=== PATIENT | male | born 1965 | race Caucasian/White ===

== ENCOUNTER 2020-11-07 10:11 | Outpatient (REF) | payer OTHER, SELFPAY ==
--- NOTE | ~2020-11-07 | XR_ITS ---
EXAMINATION: XR ELBOW, LEFT CLINICAL INFORMATION: Pain. COMPARISON: None TECHNIQUE: AP, lateral, and oblique views of the left elbow. FINDINGS: The bones and soft tissues are normal. No fracture or joint effusion. Alignment is anatomic. Joint spaces are maintained. XR/XR elbow LT 2V IMPRESSION: Normal left elbow.
[2020-11-07 11:05] LABS: Hematocrit 48.1 % (42-52); Hemoglobin 16.2 g/dl (14.0-18.0); Mean Corpuscular HGB Conc 33.7 g/dl (31.0-36.0); Mean Corpuscular Hemoglobin 29.3 pg (27.0-33.0); Mean Platelet Volume 11.9 fL (9.4-12.4); Platelet Count 242 X10*3/uL (160-400); Red Blood Count 5.53 X10*6/uL (4.60-5.80); Red Cell Distribution Width 12.4 % (11.0-16.0); White Blood Count 10.9 X10*3/uL (4.8-10.8)
[2020-11-07 11:19] LABS: Creatinine Urine 145.08 mg/dL; Microalbum/Creatinine Ratio Ur 24.1 ug/mg cr
[2020-11-07 11:20] LABS: Alanine Aminotransferase 24 U/L (0-40); Albumin Level 4.6 g/dL (3.5-5.0); Alkaline Phosphatase 78 U/L (39-117); Anion Gap 12 (12-20); Aspartate Amino Transferase 24 U/L (5-37); Bilirubin Total 0.7 mg/dL (0.0-1.0); Blood Urea Nitrogen 17 mg/dL (9-16); Calcium 9.4 mg/dL (8.4-10.2); Carbon Dioxide 28 mmol/L (22-29); Chloride 109 mmol/L (96-108); Cholesterol 214 mg/dL; Estimated Glomerular Filt Rate > 60; Glucose Fasting 93 mg/dL (60-99); HDL Cholesterol 36 mg/dL; LDL Cholesterol Calculated 142 mg/dl; Potassium 4.8 mmol/L (3.3-5.1); Sodium 144 mmol/L (135-145); Total Protein 7.6 g/dL (6.5-8.0); Triglycerides 180 mg/dL
[2020-11-07 11:42] LABS: Prostate Specific Antigen Scr 0.45 ng/mL (<0.05-4.0); TSH reflex Free T4 1.44 uIU/mL (0.32-4.0)
== END 2020-11-07 10:12 | disposition home or self-care (01) ==
LOC: HO.LAB 10:11
PROVIDERS: PCP Physician Assistant; Visit Provider Physician Assistant
DX: Z12.5 Encounter for screening for malignant neoplasm of prostate (principal); I15.8 Other secondary hypertension; I10 Essential (primary) hypertension; M25.522 Pain in left elbow
CPT/HCPCS: 36415; 73070; 80053; 80061; 82043; 84153; 84443; 85027

== ENCOUNTER 2021-04-20 09:07 | Outpatient (REF) | payer OTHER, SELFPAY ==
[2021-04-20 09:39] LABS: Estimated Average Glucose 105 mg/dL; Hemoglobin A1c % 5.3 %
[2021-04-20 09:56] LABS: Alanine Aminotransferase 44 U/L (0-40); Albumin Level 4.5 g/dL (3.5-5.0); Alkaline Phosphatase 71 U/L (39-117); Anion Gap 12 (12-20); Aspartate Amino Transferase 30 U/L (5-37); Bilirubin Total 0.9 mg/dL (0.0-1.0); Blood Urea Nitrogen 15 mg/dL (9-16); Carbon Dioxide 28 mmol/L (22-29); Chloride 103 mmol/L (96-108); Cholesterol 214 mg/dL; Estimated Glomerular Filt Rate > 60; Glucose Fasting 93 mg/dL (60-99); HDL Cholesterol 32 mg/dL; LDL Cholesterol Calculated 147 mg/dl; Sodium 139 mmol/L (135-145); Total Protein 7.6 g/dL (6.5-8.0); Triglycerides 178 mg/dL
== END 2021-04-20 09:08 | disposition home or self-care (01) ==
LOC: HO.LAB 09:07
PROVIDERS: PCP Physician Assistant; Visit Provider Physician Assistant
DX: E78.9 Disorder of lipoprotein metabolism, unspecified (principal); I15.8 Other secondary hypertension
CPT/HCPCS: 36415; 80053; 80061; 83036

== ENCOUNTER 2022-01-06 09:56 | Outpatient (REF) | payer OTHER, SELFPAY ==
[2022-01-06 10:55] LABS: Estimated Average Glucose 103 mg/dL; Hemoglobin A1c % 5.2 %
[2022-01-06 11:22] LABS: Alanine Aminotransferase 26 U/L (0-40); Albumin Level 4.6 g/dL (3.5-5.0); Alkaline Phosphatase 67 U/L (39-117); Anion Gap 14 (12-20); Aspartate Amino Transferase 23 U/L (5-37); Bilirubin Total 0.7 mg/dL (0.0-1.0); Blood Urea Nitrogen 17 mg/dL (9-16); Calcium 9.3 mg/dL (8.4-10.2); Carbon Dioxide 29 mmol/L (22-29); Chloride 106 mmol/L (96-108); Cholesterol 166 mg/dL; Estimated Glomerular Filt Rate > 60; Glucose Fasting 91 mg/dL (60-99); HDL Cholesterol 41 mg/dL; LDL Cholesterol Calculated 107 mg/dl; Potassium 4.3 mmol/L (3.3-5.1); Sodium 145 mmol/L (135-145); Total Protein 7.7 g/dL (6.5-8.0); Triglycerides 94 mg/dL
[2022-01-06 11:44] LABS: Prostate Specific Antigen Scr 0.66 ng/mL (<0.05-4.0)
[2022-01-06 12:31] LABS: Creatinine Urine 166.35 mg/dL; Microalbum/Creatinine Ratio Ur 40.2 ug/mg cr
== END 2022-01-06 09:57 | disposition home or self-care (01) ==
LOC: HO.LAB 09:56
PROVIDERS: PCP Physician Assistant; Visit Provider Physician Assistant
DX: I15.8 Other secondary hypertension (principal); E78.2 Mixed hyperlipidemia; Z12.5 Encounter for screening for malignant neoplasm of prostate
CPT/HCPCS: 36415; 80053; 80061; 82043; 83036; 84153

== ENCOUNTER 2022-10-20 11:57 | Outpatient (REF) | payer OTHER, SELFPAY ==
[2022-10-20 12:33] LABS: Hematocrit 47.3 % (42.0-52.0); Hemoglobin 16.2 g/dl (14.0-18.0); Mean Corpuscular HGB Conc 34.2 g/dl (31.0-36.0); Mean Corpuscular Hemoglobin 29.4 pg (27.0-33.0); Mean Corpuscular Volume 85.8 fL (80.0-98.0); Mean Platelet Volume 11.4 fL (9.4-12.4); Platelet Count 233 X10*3/uL (160-400); Red Blood Count 5.51 X10*6/uL (4.60-5.80); Red Cell Distribution Width 12.2 % (11.0-16.0); White Blood Count 12.2 X10*3/uL (4.8-10.8)
[2022-10-20 13:08] LABS: Alanine Aminotransferase 25 U/L (0-40); Albumin Level 4.5 g/dL (3.5-5.0); Alkaline Phosphatase 76 U/L (39-117); Anion Gap 11 (12-20); Aspartate Amino Transferase 24 U/L (5-37); Blood Urea Nitrogen 14 mg/dL (9-16); Calcium 9.4 mg/dL (8.4-10.2); Carbon Dioxide 30 mmol/L (22-29); Chloride 107 mmol/L (96-108); Cholesterol 174 mg/dL; Estimated Glomerular Filt Rate > 60; Glucose Fasting 90 mg/dL (60-99); HDL Cholesterol 40 mg/dL; LDL Cholesterol Calculated 110 mg/dl; Potassium 4.6 mmol/L (3.3-5.1); Sodium 143 mmol/L (135-145); Total Protein 7.5 g/dL (6.5-8.0); Triglycerides 124 mg/dL
[2022-10-20 13:24] LABS: TSH reflex Free T4 1.59 uIU/mL (0.32-4.0)
== END 2022-10-20 11:58 | disposition home or self-care (01) ==
LOC: HO.LAB 11:57
PROVIDERS: PCP Physician Assistant; Visit Provider Physician Assistant
DX: I15.8 Other secondary hypertension (principal); E78.2 Mixed hyperlipidemia
CPT/HCPCS: 36415; 80053; 80061; 84443; 85027

== ENCOUNTER 2023-10-08 09:38 | Outpatient (REF) | payer OTHER, SELFPAY ==
[2023-10-08 10:40] LABS: Hematocrit 45.1 % (42.0-52.0); Hemoglobin 15.5 g/dl (14.0-18.0); Mean Corpuscular HGB Conc 34.4 g/dl (31.0-36.0); Mean Corpuscular Hemoglobin 30.7 pg (27.0-33.0); Mean Corpuscular Volume 89.3 fL (80.0-98.0); Mean Platelet Volume 11.7 fL (9.4-12.4); Platelet Count 239 X10*3/uL (160-400); Red Blood Count 5.05 X10*6/uL (4.60-5.80); Red Cell Distribution Width 12.4 % (11.0-16.0); White Blood Count 9.5 X10*3/uL (4.8-10.8)
[2023-10-08 11:13] LABS: Alanine Aminotransferase 19 U/L (0-40); Albumin Level 4.5 g/dL (3.5-5.0); Alkaline Phosphatase 74 U/L (39-117); Anion Gap 14 (12-20); Aspartate Amino Transferase 20 U/L (5-37); Bilirubin Total 0.5 mg/dL (0.0-1.0); Blood Urea Nitrogen 21 mg/dL (9-16); Calcium 9.2 mg/dL (8.4-10.2); Carbon Dioxide 27 mmol/L (22-29); Chloride 107 mmol/L (96-108); Cholesterol 178 mg/dL (<200); Estimated Glomerular Filt Rate > 60; Glucose Fasting 90 mg/dL (60-99); HDL Cholesterol 38 mg/dL (>40); LDL Cholesterol Calculated 119 mg/dL (<100); Potassium 3.8 mmol/L (3.3-5.1); Sodium 144 mmol/L (135-145); Total Protein 7.5 g/dL (6.5-8.0); Triglycerides 109 mg/dL (<150)
[2023-10-08 11:33] LABS: Prostate Specific Antigen Scr 0.48 ng/mL (<0.05-4.0)
[2023-10-08 12:43] LABS: Creatinine Urine 247.44 mg/dL; Microalbum/Creatinine Ratio Ur 18.1 ug/mg cr (<30)
== END 2023-10-08 09:39 | disposition home or self-care (01) ==
LOC: HO.LAB 09:38
PROVIDERS: PCP Physician Assistant; Visit Provider Physician Assistant
DX: Z12.5 Encounter for screening for malignant neoplasm of prostate (principal); I15.8 Other secondary hypertension; E78.2 Mixed hyperlipidemia
CPT/HCPCS: 36415; 80053; 80061; 82043; 82570; 84153; 85027

== ENCOUNTER 2023-10-13 12:54 | Outpatient (AMB) | payer OTHER, SELFPAY ==
--- NOTE | 2023-10-13 13:02 | A.OFFPC_ITS ---
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: [place] citizen Accompanied by: Spouse Allergies No Known Allergies Allergy (Verified 10/13/23 13:28) Medication List - Last Reconciled 10/13/23 by Neftaly Childs PA-C amlodipine 10 mg PO DAILY 3 months baclofen 10 mg PO BEDTIME blood pressure test kit-large As directed carvedilol 25 mg PO BID 90 days famotidine 20 mg PO DAILY PRN 30 days hydrochlorothiazide 12.5 mg PO DAILY 90 days hydroxyzine HCl 10 mg PO BEDTIME 90 days nortriptyline 75 mg PO DAILY 90 days Tobacco use date assessed: 10/13/23 Dental Screening Dental Screen Date: 10/13/23 Did you have a dental visit in the last 12 months?: No Did you have a dental problem in the last 6 months where you did not have access to dental care?: Yes Was dental information given to patient?: Yes HPI MEDs F/U HPI Details Patient is a 58,/-year-old male here today for a follow up . Patient has a past medical history significant for arthritis, lumbar spine pain, hypertension. concerns--> Reports having a pain in his throat , does report a mildly difficulty with swallowing. He reports his throat has been somewhat painful over the last month. He has requesting a throat culture. We did discuss possibly his throat issues due to allergies and he is willing to try an allergy medication. HTN:? Patient is monitoring blood pressure reporting 130s to 140 systolic.? otherwise denies any headaches, chest discomfort, palpitations or shortness of breath. . Hyperlipidemia:? Cholesterol panel appropriate.? Denies any side effects from statin therapy. Laboratory Tests 01/06/22 10/08/23 10/08/23 10:15 09:50 09:58 RBC 5.05 Creatinine 0.93 Cholesterol 178 PSA Screen 0.48 Urine Microalbumin 67.0 45.0 PFSH Medical History Arthritis Hypertension Surgical History No pertinent past surgical history Family History Father No problems noted. Mother No problems noted. Brother No problems noted. Sister No problems noted. Social History Housing: House Alcohol intake: never Patient Tobacco Use Status: Never used Tobacco e-Cigarette/Vaping Use: Never Used Second Hand Smoke Exposure: No service: No Current occupational status: unemployed Cognitive needs: No Hearing needs: No Vision needs: No Questionnaire PHQ-9 Over the last 2 weeks, how often have you been bothered by any of the following problems? 1. Little interest or pleasure in doing things: not at all 2. Feeling down, depressed, or hopeless: not at all 3. Trouble falling or staying asleep, or sleeping too much: not at all 4. Feeling tired or having little energy: not at all 5. Poor appetite or overeating: not at all 6. Feeling bad about yourself - or that you are a failure or have let yourself or your family down: not at all 7. Trouble concentrating on things, such as reading the newspaper or watching television: not at all 8. Moving or speaking so slowly that other people could have noticed. Or the opposite - being so fidgety or restless that you have been moving around a lot more than usual: not at all 9. Thoughts that you would be better off or of hurting yourself in some way: not at all Total score: 0 Depression Screening Interpretation: Negative Depression Screening Done: Yes [id number] - PHQ-9 Billing: Yes Source: Developed by Drs. Dejuan Ibarra, Ana Brar, Aurelio Rg and colleagues, with an educational pantera from [employer]. Thrive Questionnaire Date Thrive assessed: 10/13/23 I am a: Patient What is your living situation today?: I have a steady place to live Within the past 12 months, did the food you bought not last and you didn't have the money to get more?: Never true Within the past 12 months, did you worry whether your food would run out before you got money to buy more?: Never true Do you have trouble paying for medicines?: No Do you have trouble getting transportation to medical appointments?: No Do you have trouble paying your heating and electricity bill?: No Do you have trouble taking care of your child, family member or friend?: No Do you have trouble with day-to-day activities such as bathing, preparing meals, shopping, managing finances, etc.?: No Are you currently unemployed and looking for a job?: No Are you interested in more education?: No Currently or been in a relationship where the following occur: no concerns reported THRIVE Score: 0 AUDIT C Alcohol Use Questionnaire (AUDIT-C) 1. How often do you have a drink containing alcohol?: Never Total Score: 0 TAMELA-7 AMB Questionnaire TAMELA-7 Date TAMELA - 7 assessed: 10/13/23 Feeling nervous, anxious, or on edge: 3 = Nearly every day Not being able to stop or control worryin = Several days Worrying too much about different things: 1 = Several days Trouble relaxin = Several days Being so restless that it is hard to sit still: 1 = Several days Becoming easily annoyed or irritable: 0 = Not at all Feeling afraid as if something awful might happen: 0 = Not at all Total TAMELA-7 score (0-4 normal; 5-9 mild; 10-14 moderate; 15-21 severe): 7 Source: Developed by Drs. Dejuan Ibarra, Ana Brar, Aurelio Rg and colleagues, with an educational pantera from [employer]. TAMELA-7 Assessment Billing TAMELA-7 Assessment Tool: TAMELA-7 Assessment 33184 Review of Systems Const Denies headache(s) Eyes Denies loss of vision ENT Denies vertigo, Denies dizziness, Denies headache(s) and Denies sore throat Card Denies chest pain, Denies leg edema and Denies lightheadedness Resp Denies cough, Denies hemoptysis and Denies wheezing GI Denies abdominal pain, Denies melena, Denies constipation, Denies diarrhea and Denies vomiting Denies dysuria, Denies urinary frequency and Denies urinary urgency Musc Denies arthralgias, Denies joint swelling, Denies numbness and Denies tingling Neuro Denies Abnormal speech present, Denies behavioral changes, Denies vertigo, Denies dizziness, Denies headache(s), Denies loss of vision, Denies memory loss, Denies numbness and Denies tingling Psych Denies anxiety, Denies behavioral changes, Denies depression, Denies memory loss and Denies panic attacks Cornelius/Lymph Denies easy bleeding and Denies easy bruising Aller/Immun Denies wheezing Physical exam (Primary Care) Vital Signs: Last Vital Signs Pulse 68 10/13/23 13:03 BP 122/78 10/13/23 13:03 Pulse Ox 96 10/13/23 13:03 Oxygen Delivery Method Room Air 10/13/23 13:03 BMI result Body Mass Index 26.7 Tobacco/Smoking Status: Tobacco use Status Tobacco use date assessed 10/13/23 10/13/23 13:10 Patient Tobacco Use Status Never used Tobacco 10/13/23 13:04 e-Cigarette/Vaping Use Never Used 10/13/23 13:04 PHQ-9: PHQ-9 Score PHQ-9: Total score 0 10/13/23 13:04 Depression Screening Interpretation: Negative Thrive Assessment: Date of Thrive Assessment Date Thrive assessed 10/13/23 10/13/23 13:04 Currently or been in a relationship where the following occur: no concerns reported Const General: healthy appearing, no acute distress, alert and awake Nutritional Appearance: well nourished Orientation/consciousness: oriented to person, oriented to place and oriented to time HENMT Ears: TM's normal bilaterally General nose exam: Normal nasal mucous membranes and turbinates present Eyes Conjunctivae: conjunctivae normal Sclerae: sclerae normal Pupils: Equal, round and reactive pupils present Neck Neck: Yes no lymphadenopathy and Yes no JVD Thyroid: Thyroid normal Carotids: no bruits Resp Effort & Inspection: normal respiratory effort and not tachypneic Auscultation: no crackles, no rales, no rhonchi and no wheezes Cardio Rate: regular rate Rhythm: regular rhythm Heart sounds: no murmurs and normal S1 and S2 GI Palpation (GI): Soft to palpation, nontender, no hepatomegaly and no splenomegaly Auscultation: normal bowel sounds Skin General skin exam: no rashes or lesions noted and dry skin Neuro General: oriented to person, oriented to place and oriented to time Cranial nerves: Yes Equal, round and reactive pupils present Speech: No Abnormal speech present Gait exam (Neuro): Normal gait present Motor exam (neuro): no tremor noted Extrem Right upper extremity: full ROM Left upper extremity: full ROM Right lower extremity: full ROM; no edema Left lower extremity: full ROM; no edema Psych Mental Status: mental status grossly normal Speech and movement: Normal speech and movement present Affect: normal affect Attitude: cooperative Thought process: Normal thought process present Assessment and Plan Assessment & Plan (1) Hypertension: Code(s): I10 - Essential (primary) hypertension Qualifiers: Hypertension type: other secondary hypertension Qualified Code(s): I15.8 - Other secondary hypertension Plan: Patient's blood pressure acceptable today in office. He does have mild microalbuminuria. Will continue to follow. Will continue his current dose of antihypertensive medication with goal blood pressure to remain below 140/90 (2) TAMELA (generalized anxiety disorder): Code(s): F41.1 - Generalized anxiety disorder Plan: Patient's TAMELA-7 score positive for moderate anxiety which has been existing condition for him. He is not interested in speaking with a mental health therapist at this time. Does use zolpidem at night for sleep on a p.r.n. basis also uses hydroxyzine on a p.r.n. basis for panic. (3) Insomnia: Code(s): G47.00 - Insomnia, unspecified Qualifiers: Insomnia type: unspecified Qualified Code(s): G47.00 - Insomnia, unspecified Plan: Continues to use amitriptyline with good effect. Was previously on zolpidem though has stopped using this medication for unclear reason. (4) HLD (hyperlipidemia): Code(s): E78.5 - Hyperlipidemia, unspecified Qualifiers: Hyperlipidemia type: mixed hyperlipidemia Qualified Code(s): E78.2 - Mixed hyperlipidemia Plan: Patient's lipid panel acceptable, will continue current dose of statin therapy as he has not reported any side effects. Goal LDL to be below 130 (5) GERD (gastroesophageal reflux disease): Code(s): K21.9 - Gastro-esophageal reflux disease without esophagitis Qualifiers: Esophagitis presence: without esophagitis Qualified Code(s): K21.9 - Gastro-esophageal reflux disease without esophagitis Plan: Patient does report signs symptoms consistent with GERD, willing to try p.r.n. H2 hesham for his GERD symptoms. Otherwise advised to reduce gastric irritant foods in his diet. (6) Pharyngitis: Code(s): J02.9 - Acute pharyngitis, unspecified Qualifiers: Pharyngitis/tonsillitis etiology: other specified organisms Qualified Code(s): J02.8 - Acute pharyngitis due to other specified organisms Plan: Does report throat irritation over last month. Likely allergy related thus advised on trying allergy medication. Will send for throat culture and if positive bacterial culture treat with antibiotics. (7) Microalbuminuria: Code(s): R80.9 - Proteinuria, unspecified Plan: Does have slight microalbuminuria, will continue to follow. Orders: Orders Comprehensive [place]. Panel Fast Today I15.8 - Other secondary hypertension Complete Blood Count no Diff Today I15.8 - Other secondary hypertension Lipid Panel Today E78.2 - Mixed hyperlipidemia Throat Culture Today J02.9 - Acute pharyngitis, unspecified Medications: New loratadine 10 mg PO DAILY 90 days 90 tabs 1RF J02.9 - Acute pharyngitis, unspecified Changed From baclofen 10 mg PO BEDTIME M51.16 - Intervertebral disc disorders with radiculopathy, lumbar region To baclofen 10 mg PO BEDTIME 90 days 90 tabs 1RF M51.16 - Intervertebral disc disorders with radiculopathy, lumbar region Refilled carvedilol 25 mg PO BID 90 days 180 tabs 2RF I15.8 - Other secondary hype rtension hydrochlorothiazide 12.5 mg PO DAILY 90 days 90 caps 2RF I15.8 - Other secondary hypertension hydroxyzine HCl 10 mg PO BEDTIME 90 days 90 tabs 1RF G47.00 - Insomnia, unspecified nortriptyline 75 mg PO DAILY 90 days 90 caps 1RF M51.16 - Intervertebral disc disorders with radiculopathy, lumbar region amlodipine 10 mg PO DAILY 3 months 90 tabs 1RF I15.8 - Other secondary hypertension Discontinued famotidine Discontinued Reason: Doctor's Order 20 mg PO DAILY 30 days PRN 30 tabs 0RF gastrointestinal spasms or cramping K21.9 - Gastro-esophageal reflux disease without esophagitis Patient Instructions: Goal : Blood pressure to be below 140/90 Barriers: Adherence to physical activity and healthy eating habits Coding Level of Care Code Est Pt Level 4 (93639) Diagnoses Other secondary hypertension I15.8 Hypertension type: other secondary hypertension TAMELA (generalized anxiety disorder) F41.1 Insomnia, unspecified type G47.00 Insomnia type: unspecified Mixed hyperlipidemia E78.2 Hyperlipidemia type: mixed hyperlipidemia Gastroesophageal reflux disease without esophagitis K21.9 Esophagitis presence: without esophagitis Pharyngitis due to other organism J02.8 Pharyngitis/tonsillitis etiology: other specified organisms Microalbuminuria R80.9 Additional Codes TAMELA-7 Assessment Billing - TAMELA-7 Assessment Tool: TAMELA-7 Assessment [id number] ([id number])
[2023-10-13 13:03] VITALS: BP 122/78; PULSE 68; O2SAT 96; BMI 26.7
== END 2023-10-13 13:44 | disposition home or self-care (01) ==
PROVIDERS: PCP Physician Assistant; Visit Provider Physician Assistant
DX: I15.8 Other secondary hypertension (principal); F41.1 Generalized anxiety disorder; G47.00 Insomnia, unspecified; E78.2 Mixed hyperlipidemia; K21.9 Gastro-esophageal reflux disease without esophagitis; J02.8 Acute pharyngitis due to other specified organisms; R80.9 Proteinuria, unspecified
CPT/HCPCS: 96127; 99214

== ENCOUNTER 2023-10-13 18:17 | Outpatient (REF) | payer OTHER, SELFPAY | END 2023-10-13 18:18 | disposition home or self-care (01) | LOC: HO.LNP 18:17 | PROVIDERS: Visit Provider Physician Assistant | DX: I15.8 Other secondary hypertension (principal); E78.2 Mixed hyperlipidemia; J02.9 Acute pharyngitis, unspecified | CPT/HCPCS: 87070 ==

== ENCOUNTER 2024-01-04 09:47 | Outpatient (REF) | payer OTHER, SELFPAY ==
[2024-01-04 10:55] LABS: Hemoglobin 16.4 g/dl (14.0-18.0); Mean Corpuscular HGB Conc 34.2 g/dl (31.0-36.0); Mean Corpuscular Hemoglobin 29.7 pg (27.0-33.0); Mean Corpuscular Volume 86.8 fL (80.0-98.0); Mean Platelet Volume 11.7 fL (9.4-12.4); Platelet Count 247 X10*3/uL (160-400); Red Blood Count 5.53 X10*6/uL (4.60-5.80); Red Cell Distribution Width 12.3 % (11.0-16.0); White Blood Count 10.6 X10*3/uL (4.8-10.8)
[2024-01-04 11:29] LABS: Alanine Aminotransferase 20 U/L (0-40); Albumin Level 4.2 g/dL (3.5-5.0); Alkaline Phosphatase 74 U/L (39-117); Anion Gap 13 (12-20); Aspartate Amino Transferase 21 U/L (5-37); Bilirubin Total 0.7 mg/dL (0.0-1.0); Blood Urea Nitrogen 16 mg/dL (9-16); Carbon Dioxide 26 mmol/L (22-29); Chloride 106 mmol/L (96-108); Cholesterol 203 mg/dL (<200); Estimated Glomerular Filt Rate > 60; Glucose Fasting 84 mg/dL (60-99); HDL Cholesterol 36 mg/dL (>40); LDL Cholesterol Calculated 143 mg/dL (<100); Potassium 3.8 mmol/L (3.3-5.1); Sodium 141 mmol/L (135-145); Total Protein 7.4 g/dL (6.5-8.0); Triglycerides 121 mg/dL (<150)
== END 2024-01-04 09:48 | disposition home or self-care (01) ==
LOC: HO.LAB 09:47
PROVIDERS: PCP Physician Assistant; Visit Provider Physician Assistant
DX: E78.2 Mixed hyperlipidemia (principal); I15.8 Other secondary hypertension
CPT/HCPCS: 36415; 80053; 80061; 85027

== ENCOUNTER 2024-01-12 12:37 | Outpatient (AMB) | payer OTHER, SELFPAY ==
[2024-01-12 13:02] VITALS: BP 118/78; PULSE 72; O2SAT 96; BMI 27.6
--- NOTE | 2024-01-12 13:02 | MHC.PC.OV ---
Vital Signs 01/12/24 13:02 Height 6 ft 2 in Weight 215 lb 6 oz BMI 27.6 BP 118/78 Blood Pressure Location Lt brachial Position Sitting Pulse 72 Pulse Source Pulse Oximeter Pulse Oximetry (%) 96 Oxygen Delivery Method Room Air Intake Visit Reasons: Annual Exam Intake Note: Patient is here today for a physical. 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 Language: [place] Citizen Accompanied by: Self / Same As Patient Allergies No Known Allergies Allergy (Verified 01/12/24 13:07) Medication List - Last Reconciled 01/12/24 by Neftaly Childs PA-C amlodipine 10 mg PO DAILY 3 months baclofen 10 mg PO BEDTIME 90 days blood pressure test kit-large As directed carvedilol 25 mg PO BID 90 days hydrochlorothiazide 12.5 mg PO DAILY 90 days hydroxyzine HCl 10 mg PO BEDTIME 90 days loratadine 10 mg PO DAILY 90 days nortriptyline 75 mg PO DAILY 90 days Tobacco use date assessed: 10/13/23 Dental Screening Dental Screen Date: 10/13/23 HPI Annual Exam HPI Details Patient is a 58,-year-old male here today for a routine annual physical. Patient has a past medical history significant for arthritis, lumbar spine pain, hypertension. concerns--> has been having trouble sleeping and reports hydroxyzine 10 mg has not been effective anymore. He will increase his hydroxyzine to 2 tablets 20 mg for better results HTN:? Patient is monitoring blood pressure reporting 130s to 140 systolic.? otherwise denies any headaches, chest discomfort, palpitations or shortness of breath. . Hyperlipidemia:? Noted cholesterol panel showing borderline high total cholesterol and elevated LDL. Did gain weight since last office visit. Does admit to poor dietary habits lately. Colorectal cancer screening: willing to do cologaurd Vaccines: Up-to-date with tetanus vaccine, needs flu and shingles vaccine, declines COVID Laboratory Tests 10/08/23 01/04/24 09:50 10:06 RBC 5.53 Creatinine 0.88 Cholesterol 203 H LDL Cholesterol, C alc 143 H Urine Microalbumin 45.0 PFSH Medical History Arthritis Hypertension Surgical History No pertinent past surgical history Family History Father No problems noted. Mother No problems noted. Brother No problems noted. Sister No problems noted. Social History Housing: House Alcohol intake: never Patient Tobacco Use Status: Never used Tobacco e-Cigarette/Vaping Use: Never Used Second Hand Smoke Exposure: No service: No Current occupational status: unemployed Cognitive needs: No Hearing needs: No Vision needs: No Questionnaire Thrive Questionnaire Date Thrive assessed: 10/13/23 TAMELA-7 AMB Questionnaire TAMELA-7 Date TAMELA - 7 assessed: 10/13/23 Source: Developed by Drs. Dejuan Ibarra, Ana Brar, Aurelio Rg and colleagues, with an educational pantera from [employer]. Review of Systems Const Denies body aches, Denies chills, Denies excessive sweating, Denies fatigue, Denies fever(s) and Denies headache(s) Eyes Denies blurry vision ENT Denies dysphagia, Denies vertigo, Denies dizziness, Denies headache(s), Denies hearing loss and Denies tinnitus Card Denies chest pain, Denies chest pain with activity, Denies syncope, Denies irregular heart rhythm and Denies dyspnea Resp Denies chest congestion, Denies cough, Denies hemoptysis, Denies dyspnea and Denies wheezing GI Denies abdominal pain, Denies melena, Denies hematochezia, Denies coffee ground emesis, Denies dysphagia, Denies diarrhea, Denies nausea and Denies vomiting Denies difficulty urinating, Denies dysuria, Denies urinary frequency, Denies urinary hesitancy and Denies urinary urgency Musc Denies arthralgias, Denies limited range of motion, Denies muscle cramps and Denies muscle weakness Skin/Breast Denies rash and Denies skin ulcer Neuro Denies Abnormal speech present, Denies confusion, Denies vertigo, Denies dizziness, Denies syncope, Denies headache(s), Denies memory loss and Denies seizure-like activity Psych Denies anxiety, Denies confusion, Denies depression, Denies memory loss, Denies panic attacks and Denies paranoia Endo Denies excessive sweating, Denies fatigue, Denies flushing, Denies polydipsia and Denies polyuria Aller/Immun Denies wheezing Physical exam (Primary Care) Vital Signs: Last Vital Signs Pulse 72 01/12/24 13:02 BP 118/78 01/12/24 13:02 Pulse Ox 96 01/12/24 13:02 Oxygen Delivery Method Room Air 01/12/24 13:02 BMI result Body Mass Index 27.6 Tobacco/Smoking Status: Tobacco use Status Tobacco use date assessed 10/13/23 01/12/24 13:08 Patient Tobacco Use Status Never used Tobacco 01/12/24 13:08 e-Cigarette/Vaping Use Never Used 01/12/24 13:08 Thrive Assessment: Date of Thrive Assessment Date Thrive assessed 10/13/23 01/12/24 13:08 Const General: cooperative, comfortable, no acute distress, alert and awake; No confusion Orientation/consciousness: oriented to person, oriented to place, patient oriented x3 and No confusion HENMT Head: Yes normocephalic Ears: external ears normal and TM's normal bilaterally Face and sinus: No sinus tenderness Mouth: Normal oral and palatal mucosa present and tongue normal Teeth and gingiva: dentition normal and gingiva normal Throat: Yes posterior oropharynx normal, Yes tonsils normal and Yes uvula midline Eyes Conjunctivae: conjunctivae normal Sclerae: sclerae normal Pupils: Equal, round and reactive pupils present EOM: EOMs intact bilaterally Direct Ophthalmoscopy: No no photophobia Neck Neck: Yes no lymphadenopathy, No tender and Yes no JVD Thyroid: Thyroid normal Carotids: no bruits Chest Chest palpation & inspection: no tenderness Resp Effort & Inspection: normal respiratory effort, no audible wheezes, not labored and no stridor Auscultation: no crackles, no rales, no rhonchi and no wheezes Cardio Jugular venous distension: no JVD Rate: regular rate, not bradycardic and not tachycardic Rhythm: regular rhythm Bruits: no carotid bruits Peripheral pulses: Peripheral pulses 2+ throughout GI Inspection: Yes normal to inspection, No abdominal wall ecchymosis and No visible herniation Palpation (GI): Soft to palpation, nontender, no guarding, not rigid and No hepatosplenomegaly present Auscultation: normoactive bowel sounds General: Yes no CVA tenderness Back/Spine/Pelvis Back: no CVA tenderness and No back tenderness Cervical Spine: cervical ROM normal Thoracic/Lumbar Spine: thoracic and lumbar spine normal to inspection, straight leg raise negative bilaterally, No thoraco-lumbar ROM limited and No lumbar spinal tenderness Skin Lesions: no lesions Rashes: no rashes Wounds: no wounds Neuro General: oriented to person, oriented to place, patient oriented x3, CN's II-XI intact bilaterally and No confusion Cranial nerves: Yes Equal, round and reactive pupils present and Yes Normal accommodation reflex present Cognition (Neuro): normal cognition Speech: No Abnormal speech present Gait exam (Neuro): Normal gait present Motor exam (neuro): 5/5 motor strength present throughout Extrem Right upper extremity: full ROM; no cyanosis Left upper extremity: full ROM; no cyanosis Right lower extremity: no edema Left lower extremity: no edema Psych Appearance: grossly normal Mental Status: mental status grossly normal Affect: normal affect Attitude: cooperative Thought process: Normal thought process present Assessment and Plan Assessment & Plan (1) Annual physical exam: Code(s): Z00.00 - Encounter for general adult medical examination without abnormal findings (2) Hypertension: Code(s): I10 - Essential (primary) hypertension Qualifiers: Hypertension type: other secondary hypertension Qualified Code(s): I15.8 - Other secondary hypertension Plan: Patient's blood pressure acceptable today in office. He does have mild microalbuminuria. Will continue to follow. Will continue his current dose of antihypertensive medication with goal blood pressure to remain below 140/90 (3) Insomnia: Code(s): G47.00 - Insomnia, unspecified Qualifiers: Insomnia type: unspecified Qualified Code(s): G47.00 - Insomnia, unspecified Plan: Reports he has been having some trouble sleeping. He admits that hydroxyzine was effective initially. Will increase his dose of hydroxyzine to 2 tablets 20 mg to see if it has better effect on sleep. (4) HLD (hyperlipidemia): Code(s): E78.5 - Hyperlipidemia, unspecified Qualifiers: Hyperlipidemia type: mixed hyperlipidemia Qualified Code(s): E78.2 - Mixed hyperlipidemia Plan: Patient's lipid panel showing borderline high cholesterol and elevated LDL, he does admit to dietary indiscretion as of late. Goal LDL to be below 130 (5) Microalbuminuria: Code(s): R80.9 - Proteinuria, unspecified Plan: Does have slight microalbuminuria, will continue to follow. (6) Colon cancer screening: Code(s): Z12.11 - Encounter for screening for malignant neoplasm of colon Plan: Willing to do Cologuard Orders: Orders Microalbumin, Random (w Creat) 01/12/24 I15.8 - Other secondary hypertension Comprehensive [place]. Panel Fast 01/12/24 I15.8 - Other secondary hypertension Lipid Panel 01/12/24 E78.2 - Mixed hyperlipidemia Prostate Specific Antigen Scr 01/12/24 I15.8 - Other secondary hypertension, Z12.5 - Encounter for screening for malignant neoplasm of prostate Complete Blood Count no Diff 01/12/24 K21.9 - Gastro-esophageal reflux disease without esophagitis Referrals Cologuard Test Z12.11 - Encounter for screening for malignant neoplasm of colon Medications: Refilled baclofen 10 mg PO BEDTIME 90 days 90 tabs 1RF M51.16 - Intervertebral disc disorders with radiculopathy, lumbar region carvedilol 25 mg PO BID 90 days 180 tabs 2RF I15.8 - Other secondary hypertension loratadine 10 mg PO DAILY 90 days 90 tabs 1RF J02.9 - Acute pharyngitis, unspecified nortriptyline 75 mg PO DAILY 90 days 90 caps 1RF M51.16 - Intervertebral disc disorders with radiculopathy, lumbar region amlodipine 10 mg PO DAILY 3 months 90 tabs 1RF I15.8 - Other secondary hypertension hydrochlorothiazide 12.5 mg PO DAILY 90 days 90 caps 2RF I15.8 - Other secondary hypertension hydroxyzine HCl 10 mg PO BEDTIME 90 days 90 tabs 1RF G47.00 - Insomnia, unspecified Patient Instructions: Goal: Blood pressure to be below 140/90 Barriers: Adherence to physical activity and healthy eating habits Coding Level of Care Code Est Pt Prev Care 40-64y(34480) Diagnoses Annual physical exam Z00.00 Other secondary hypertension I15.8 Hypertension type: other secondary hypertension Insomnia, unspecified type G47.00 Insomnia type: unspecified Mixed hyperlipidemia E78.2 Hyperlipidemia type: mixed hyperlipidemia Microalbuminuria R80.9 Colon cancer screening Z12.11
== END 2024-01-12 13:31 | disposition home or self-care (01) ==
PROVIDERS: PCP Physician Assistant; Visit Provider Physician Assistant
DX: Z00.00 Encounter for general adult medical examination without abnormal findings (principal); I15.8 Other secondary hypertension; G47.00 Insomnia, unspecified; E78.2 Mixed hyperlipidemia; R80.9 Proteinuria, unspecified; Z12.11 Encounter for screening for malignant neoplasm of colon
CPT/HCPCS: 99396

== ENCOUNTER 2024-05-03 09:24 | Outpatient (REF) | payer OTHER, SELFPAY ==
[2024-05-03 10:07] LABS: Hematocrit 47.3 % (42.0-52.0); Hemoglobin 16.6 g/dl (14.0-18.0); Mean Corpuscular HGB Conc 35.1 g/dl (31.0-36.0); Mean Corpuscular Hemoglobin 29.7 pg (27.0-33.0); Mean Corpuscular Volume 84.6 fL (80.0-98.0); Mean Platelet Volume 11.7 fL (9.4-12.4); Platelet Count 247 X10*3/uL (160-400); Red Blood Count 5.59 X10*6/uL (4.60-5.80); Red Cell Distribution Width 12.4 % (11.0-16.0); White Blood Count 10.6 X10*3/uL (4.8-10.8)
[2024-05-03 10:53] LABS: Alanine Aminotransferase 39 U/L (0-40); Albumin Level 4.4 g/dL (3.5-5.0); Alkaline Phosphatase 80 U/L (39-117); Anion Gap 11 (12-20); Aspartate Amino Transferase 29 U/L (5-37); Bilirubin Total 0.7 mg/dL (0.0-1.0); Blood Urea Nitrogen 20 mg/dL (9-16); Carbon Dioxide 30 mmol/L (22-29); Chloride 106 mmol/L (96-108); Cholesterol 232 mg/dL (<200); Estimated Glomerular Filt Rate > 60; Glucose Fasting 102 mg/dL (60-99); HDL Cholesterol 38 mg/dL (>40); LDL Cholesterol Calculated 160 mg/dL (<100); Potassium 3.5 mmol/L (3.3-5.1); Sodium 143 mmol/L (135-145); Total Protein 7.8 g/dL (6.5-8.0); Triglycerides 174 mg/dL (<150)
[2024-05-03 10:54] LABS: Creatinine Urine 243.67 mg/dL; Microalbum/Creatinine Ratio Ur 42.2 ug/mg cr (<30)
[2024-05-03 10:58] LABS: Prostate Specific Antigen Scr 0.55 ng/mL (<0.05-4.0)
[2024-05-06 05:44] LABS: TS Negative Control Passed; TS Panel A 0; TS Panel B 0; TS Positive Control Passed; TSpotTB Negative (Negative)
== END 2024-05-03 09:25 | disposition home or self-care (01) ==
LOC: HO.LAB 09:24
PROVIDERS: PCP Physician Assistant; Visit Provider Physician Assistant
DX: K21.9 Gastro-esophageal reflux disease without esophagitis (principal); I15.8 Other secondary hypertension; E78.2 Mixed hyperlipidemia; Z11.1 Encounter for screening for respiratory tuberculosis; Z12.5 Encounter for screening for malignant neoplasm of prostate
CPT/HCPCS: 36415; 80053; 80061; 82043; 82570; 84153; 85027; 86481

== ENCOUNTER 2024-07-12 07:48 | Outpatient (AMB) | payer OTHER, SELFPAY ==
[2024-07-12 08:12] VITALS: BP 124/80; PULSE 69; O2SAT 95; BMI 28.6
--- NOTE | 2024-07-12 08:12 | MHC.PC.OV ---
Vital Signs 07/12/24 08:12 Height 6 ft 2 in Weight 223 lb BMI 28.6 BP 124/80 Blood Pressure Location Lt brachial Position Sitting Pulse 69 Pulse Source Pulse Oximeter Pulse Oximetry (%) 95 Oxygen Delivery Method Room Air Intake Visit Reasons: 6 mo f/u HTN/ HLD Nuclear Weapons Specialist Required: Yes Nuclear Weapons Specialist Language: Ball [place]der Name: Used tablet -ID #[id number] Allergies No Known Allergies Allergy (Verified 07/12/24 09:02) Medication List - Last Reconciled 07/12/24 by Neftaly Childs PA-C amlodipine 10 mg PO DAILY 3 months baclofen 10 mg PO BEDTIME 90 days blood pressure test kit-large As directed carvedilol 25 mg PO BID 90 days hydrochlorothiazide 12.5 mg PO DAILY 90 days hydroxyzine HCl 10 mg PO BEDTIME 90 days loratadine 10 mg PO DAILY 90 days nortriptyline 75 mg PO DAILY 90 days simvastatin 10 mg PO BEDTIME 90 days Tobacco use date assessed: 07/12/24 Dental Screening Dental Screen Date: 07/12/24 Did you have a dental visit in the last 12 months?: Yes Did you have a dental problem in the last 6 months where you did not have access to dental care?: No Was dental information given to patient?: Patient has dentist HPI 6 mo f/u HTN/ HLD HPI Details Patient is a 58,-year-old male here today for a follow-up visit Patient has a past medical history significant for arthritis, lumbar spine pain, hypertension. .. Lumbar radiculopathy: Has a long history lumbar radiculopathy. He reports he recently has noted more pain in his lower back and intermittent episodes of shooting pain down his legs with numbness weakness in his lower extremities. He has been evaluated for this in the past but pain management and started on nortriptyline which has been helpful for his chronic lumbar Pain. He is interested in getting re-evaluated with x-ray and lumbar MRI to rule out a disc herniation HTN:? Patient is monitoring blood pressure reporting 130s to 140 systolic.? otherwise denies any headaches, chest discomfort, palpitations or shortness of breath. . Hyperlipidemia:? Noted cholesterol panel showing borderline high total cholesterol and elevated LDL. Did gain weight since last office visit. Does admit to poor dietary habits lately. Laboratory Tests 01/04/24 05/03/24 05/03/24 10:06 09:40 09:41 RBC 5.59 Creatinine 0.95 Fasting Glucose 102 H Cholesterol 203 H 232 H LDL Cholesterol, C alc 143 H 160 H Urine Microalbumin 103.0 PFSH Medical History Arthritis Hypertension Surgical History No pertinent past surgical history Family History Father No problems noted. Mother No problems noted. Brother No problems noted. Sister No problems noted. Social History Housing: House Alcohol intake: never Patient Tobacco Use Status: Never used Tobacco Tobacco use type: Cigarette e-Cigarette/Vaping Use: Never Used Second Hand Smoke Exposure: No service: No Current occupational status: unemployed Cognitive needs: No Hearing needs: No Vision needs: No Questionnaire PHQ-9 Over the last 2 weeks, how often have you been bothered by any of the following problems? 1. Little interest or pleasure in doing things: not at all 2. Feeling down, depressed, or hopeless: not at all 3. Trouble falling or staying asleep, or sleeping too much: not at all 4. Feeling tired or having little energy: not at all 5. Poor appetite or overeating: not at all 6. Feeling bad about yourself - or that you are a failure or have let yourself or your family down: not at all 7. Trouble concentrating on things, such as reading the newspaper or watching television: not at all 8. Moving or speaking so slowly that other people could have noticed. Or the opposite - being so fidgety or restless that you have been moving around a lot more than usual: not at all 9. Thoughts that you would be better off or of hurting yourself in some way: not at all Total score: 0 Depression Screening Interpretation: Negative Depression Screening Done: Yes 86597 - PHQ-9 Billing: Yes Source: Developed by Drs. Dejuan Ibarra, Ana Brar, Aurelio Rg and colleagues, with an educational pantera from [employer]. Thrive Questionnaire Date Thrive assessed: 07/12/24 I am a: Patient What is your living situation today?: I have a steady place to live Within the past 12 months, did the food you bought not last and you didn't have the money to get more?: Never true Within the past 12 months, did you worry whether your food would run out before you got money to buy more?: Never true Do you have trouble paying for medicines?: No Do you have trouble getting transportation to medical appointments?: No Do you have trouble paying your heating and electricity bill?: No Do you have trouble taking care of your child, family member or friend?: No Do you have trouble with day-to-day activities such as bathing, preparing meals, shopping, managing finances, etc.?: No Are you currently unemployed and looking for a job?: No Are you interested in more education?: No Currently or been in a relationship where the following occur: No concerns reported THRIVE Score: 0 AUDIT C Alcohol Use Questionnaire (AUDIT-C) 1. How often do you have a drink containing alcohol?: Never Total Score: 0 TAMELA-7 AMB Questionnaire TAMELA-7 Date TAMELA - 7 assessed: 07/12/24 Feeling nervous, anxious, or on edge: 0 = Not at all Not being able to stop or control worryin = Not at all Worrying too much about different things: 0 = Not at all Trouble relaxin = Not at all Being so restless that it is hard to sit still: 0 = Not at all Becoming easily annoyed or irritable: 0 = Not at all Feeling afraid as if something awful might happen: 0 = Not at all Total TAMELA-7 score (0-4 normal; 5-9 mild; 10-14 moderate; 15-21 severe): 0 Source: Developed by Drs. Dejuan Ibarra, Ana Brar, Aurelio Rg and colleagues, with an educational pantera from [employer]. Review of Systems Const Denies headache(s) Eyes Denies loss of vision ENT Denies vertigo, Denies dizziness, Denies headache(s) and Denies sore throat Card Denies chest pain, Denies leg edema and Denies lightheadedness Resp Denies cough, Denies hemoptysis and Denies wheezing GI Denies abdominal pain, Denies melena, Denies constipation, Denies diarrhea and Denies vomiting Denies dysuria, Denies urinary frequency and Denies urinary urgency Musc Denies arthralgias, Denies joint swelling, Denies numbness and Denies tingling Neuro Denies Abnormal speech present, Denies behavioral changes, Denies vertigo, Denies dizziness, Denies headache(s), Denies loss of vision, Denies memory loss, Denies numbness and Denies tingling Psych Denies anxiety, Denies behavioral changes, Denies depression, Denies memory loss and Denies panic attacks Cornelius/Lymph Denies easy bleeding and Denies easy bruising Aller/Immun Denies wheezing Physical exam (Primary Care) Vital Signs: Last Vital Signs Pulse 69 07/12/24 08:12 BP 124/80 07/12/24 08:12 Pulse Ox 95 07/12/24 08:12 Oxygen Delivery Method Room Air 07/12/24 08:12 BMI result Body Mass Index 28.6 Tobacco/Smoking Status: Tobacco use Status Tobacco use date assessed 07/12/24 07/12/24 08:14 Patient Tobacco Use Status Never used Tobacco 07/12/24 08:14 Tobacco use type Cigarette 07/12/24 08:14 e-Cigarette/Vaping Use Never Used 07/12/24 08:14 PHQ-9: PHQ-9 Score PHQ-9: Total score 0 07/12/24 09:04 Depression Screening Interpretation: Negative Thrive Assessment: Date of Thrive Assessment Date Thrive assessed 07/12/24 07/12/24 08:14 Currently or been in a relationship where the following occur: No concerns reported Const General: healthy appearing, no acute distress, alert and awake Nutritional Appearance: well nourished Orientation/consciousness: oriented to person, oriented to place and oriented to time HENMT Ears: TM's normal bilaterally General nose exam: Normal nasal mucous membranes and turbinates present Eyes Conjunctivae: conjunctivae normal Sclerae: sclerae normal Pupils: Equal, round and reactive pupils present Neck Neck: Yes no lymphadenopathy and Yes no JVD Thyroid: Thyroid normal Carotids: no bruits Resp Effort & Inspection: normal respiratory effort and not tachypneic Auscultation: no crackles, no rales, no rhonchi and no wheezes Cardio Rate: regular rate Rhythm: regular rhythm Heart sounds: no murmurs and normal S1 and S2 GI Palpation (GI): Soft to palpation, nontender, no hepatomegaly and no splenomegaly Auscultation: normal bowel sounds Skin General skin exam: no rashes or lesions noted and dry skin Neuro General: oriented to person, oriented to place and oriented to time Cranial nerves: Yes Equal, round and reactive pupils present Speech: No Abnormal speech present Gait exam (Neuro): Normal gait present Motor exam (neuro): no tremor noted Extrem Right upper extremity: full ROM Left upper extremity: full ROM Right lower extremity: full ROM; no edema Left lower extremity: full ROM; no edema Psych Mental Status: mental status grossly normal Speech and movement: Normal speech and movement present Affect: normal affect Attitude: cooperative Thought process: Normal thought process present Coding Level of Care Code Est Pt Level 4 (77468) Diagnoses Mixed hyperlipidemia E78.2 Hyperlipidemia type: mixed hyperlipidemia TAMELA (generalized anxiety disorder) F41.1 Other secondary hypertension I15.8 Hypertension type: other secondary hypertension Lumbar disc disease with radiculopathy M51.16 Additional Codes PHQ-9 - 59435 - PHQ-9 Billing: Yes ([id number]) Assessment & Plan Assessment & Plan (1) HLD (hyperlipidemia): Code(s): E78.5 - Hyperlipidemia, unspecified Category: Medical Qualifiers: Hyperlipidemia type: mixed hyperlipidemia Qualified Code(s): E78.2 - Mixed hyperlipidemia Plan: Patient's most recent lipid panel showing elevated total cholesterol and LDL. He was started on simvastatin 10 mg. Will recheck fasting lipid panel and to ensure improved total cholesterol and LDL. Goal LDL is to be below 130 (2) TAMELA (generalized anxiety disorder): Code(s): F41.1 - Generalized anxiety disorder Category: Medical Plan: Patient anxiety has been well controlled. (3) Hypertension: Code(s): I10 - Essential (primary) hypertension Category: Medical Qualifiers: Hypertension type: other secondary hypertension Qualified Code(s): I15.8 - Other secondary hypertension Plan: Patient's blood pressure well controlled. Will continue his current dose of antihypertensive medication with goal blood pressure to be below 140/90 (4) Lumbar disc disease with radiculopathy: Code(s): M51.16 - Intervertebral disc disorders with radiculopathy, lumbar region Category: Medical Plan: As per HPI patient continues to have lower lumbar spine pain. Over the last few weeks his lower lumbar spine pain has been a bit worse and having sharp pain radiating down his lower extremites with some lower extremity weakness. He is interested in getting evaluation with lumbar x-rays and an MRI to evaluate for disc herniation. Orders: Orders XR lumbar spine 4V min Today M51.16 - Intervertebral disc disorders with radiculopathy, lumbar region Microalbumin, Random (w Creat) Today I15.8 - Other secondary hypertension MR lumbar spine wo con Today M51.16 - Intervertebral disc disorders with radiculopathy, lumbar region Comprehensive [place]. Panel Fast Today I15.8 - Other secondary hypertension Lipid Panel Today E78.2 - Mixed hyperlipidemia Complete Blood Count no Diff Today E78.2 - Mixed hyperlipidemia Medications: New acetaminophen-codeine 300-30 mg 1 tab PO Q8H 4 days PRN 12 tabs 0RF pain M51.16 - Intervertebral disc disorders with radiculopathy, lumbar region Patient Instructions: Goal: Blood pressure to remain below 140/90, LDL to be below 130 Barriers: Adherence to physical activity and healthy eating habits
== END 2024-07-12 09:22 | disposition home or self-care (01) ==
PROVIDERS: PCP Physician Assistant; Visit Provider Physician Assistant
DX: E78.2 Mixed hyperlipidemia (principal); F41.1 Generalized anxiety disorder; I15.8 Other secondary hypertension; M51.16 Intervertebral disc disorders with radiculopathy, lumbar region

== ENCOUNTER → 2024-07-12 07:48 | Outpatient (BNVA) | payer OTHER, SELFPAY | PROVIDERS: PCP Physician Assistant; Visit Provider Physician Assistant | DX: E78.2 Mixed hyperlipidemia (principal); F41.1 Generalized anxiety disorder; I15.8 Other secondary hypertension; M51.16 Intervertebral disc disorders with radiculopathy, lumbar region | CPT/HCPCS: 96127; 99212 ==

== ENCOUNTER → 2024-07-20 17:16 | Outpatient (BNV) | payer OTHER, SELFPAY | PROVIDERS: Visit Provider Radiology Diagnostic Radiology | DX: M51.16 Intervertebral disc disorders with radiculopathy, lumbar region (principal) | CPT/HCPCS: 72148 ==

== ENCOUNTER 2024-07-20 17:17 | Outpatient (REF) | payer OTHER, SELFPAY ==
--- NOTE | ~2024-07-20 | MR_ITS ---
EXAMINATION: MR LUMBAR SPINE WITHOUT CONTRAST CLINICAL INFORMATION: Intervertebral discs disorders with radiculopathy, lumbar region. COMPARISON: None available. TECHNIQUE: MRI of the lumbar spine was obtained using routine sequences without contrast. FINDINGS: Last rib-bearing vertebra labeled T12. No bone marrow STIR signal abnormality. There is slight intrinsic hyperintense T1 and hyperintense T2 FLAIR bone lesion at L1 likely intraosseous hemangioma. Multilevel marginal osteophyte formation and disc desiccation from L3-4 to L5-S1 more conspicuous at L4-5. Focal hyperintense T2 signal in the posterior intervertebral disc of L4-5 likely focal annular fissure. The alignment is normal Conus medullaris ends at superior endplate of L1 with normal signal. T12-L1: No disc herniation. No neuroforamina stenosis. L1-2: Broad-based disc bulging. Facet joint hypertrophy. No compression upon neural elements. L2-3: Broad-based disc bulging. Facet joint and ligamentum flavum hypertrophy. Reduced AP diameter of the thecal sac and the neural foramina. No compression upon neural elements. L3-4: Broad-based disc bulging. Facet joint and ligamentum flavum hypertrophy. Reduced AP diameter of the thecal sac and the neural foramina. L4-5: Broad-based disc bulging. Facet joint and ligamentum flavum hypertrophy. Reduced AP diameter of the thecal sac and the neural foramina encroaching the L5 and L4 exiting nerve roots. L5-S1: Broad-based disc bulging. Facet joint and ligamentum flavum hypertrophy. Reduced AP diameter of the thecal sac and the neural foramina likely encroaching the S1 and L5 nerve roots. No prevertebral compartment hematoma, mass or fluid collections. MR/MR lumbar spine wo con IMPRESSION: Multilevel lumbar spondylosis L2 S1 more conspicuous at L4-5 and to a lesser extent L5-S1 likely encroaching the exiting nerve roots. Electronically signed by: Anand Marroquin MD 07/21/2024 07:54 AM EST
== END 2024-07-20 17:18 | disposition home or self-care (01) ==
LOC: HO.MRI 17:17
PROVIDERS: Visit Provider Physician Assistant
DX: M51.16 Intervertebral disc disorders with radiculopathy, lumbar region (principal)
CPT/HCPCS: 72148

== ENCOUNTER 2024-07-29 09:05 | Outpatient (AMB) | payer OTHER, SELFPAY ==
--- NOTE | 2024-07-29 09:25 | HO.SPINEOV ---
Vital Signs 07/29/24 09:32 Height 6 ft 2 in Weight 223 lb BMI 28.6 Intake Visit Reasons: LBP Intake Note: Mr. Sadi Lakhani is here today c/p Low back pain that radiates down to the legs. Fashion Director Party Plan Sales Required: Yes Fashion Director Party Plan Sales Name: Tablet Allergies Queen gill Allergy (Severe, Uncoded 07/29/24 09:36) Unresponsive Physical Exam Vital Signs: BMI result Body Mass Index 28.6 Assessment & Plan Assessment & Plan (1) Back pain: Code(s): M54.9 - Dorsalgia, unspecified Category: Medical Plan Dear Neftaly, Thank you for referring Mr Sadi Lakhani to our office today. This visit was done with area mechanic [id number]. He is a very nice 58-year-old gentleman who has had chronic low back pain for multiple decades. He has had steadily worsening pain over the years. 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 He currently is not working, but even without the extra activity is back is bothering him. He localizes over the center of his back. Occasionally his legs will feel weak when the back pain is very intensified. On a day-to-day basis he has significant pain, even from getting up in the morning and throughout the day. There is a component of radiculopathy but the primary discomfort in his low back. The radiculopathy goes down the front of his legs. He takes Motrin and baclofen. He got those from the [employer] spine and sport team. He comes today with an MRI showing some degenerative discs in his low back. He has done therapy in the past, and some chiropractic treatments in [place]. PMH: Hypertension, high cholesterol, denies any history of heart disease, lung issues, heart attacks, strokes, liver disease, kidney problems, coagulopathies or cancer. He has never had surgery Social hx: He does not smoke, drink or use any recreational drugs Medications: Amlodipine, carvedilol, baclofen, hydrochlorothiazide, hydroxyzine, simvastatin Allergies: None Physical exam: Awake alert oriented no acute distress, able to stand and walk around the room independently, strength and reflexes normal Imaging review: Lumbar MRI done at [place] shows only significant finding is that there is some disc degeneration at L4-5 with anterior osteophyte formation. I can not tell if this has bridged completely yet. There is no significant central canal stenosis anywhere in the lumbar spine. Impression: 58-year-old male with chronic low back pain for probably 20 or 30 years with some degeneration of his disc at L4-5. I explained to him that often these things can be incidental findings. We also talked about the difficulty of establishing the etiology of back pain. Therefore it is very hard to offer surgery, not knowing her understanding better if this is the source of his pain. There is no major misalignments, Modic endplate changes or disc herniations to help us corroborate if this is the source of his pain. There are large anterior bridging osteophytes seen on his x-ray at L4-5 in 2020 and his MRI more recently. I would like to get a CT scan just to clarify if this level has already auto fused as that would take surgery off the table completely. I will see him back once the CT scan is completed. Thank you for allowing us to care for your patient. The total time spent with this visit with this patient was 45 minutes reviewing history, physical exam, lumbar imaging review, and implementation of treatment plan or further diagnostic testing Killian Boswell MD,PhD [facility] Coding Level of Care Code New Pt Level 4 (22701) Diagnoses Back pain M54.9
[2024-07-29 09:32] VITALS: BMI 28.6
== END 2024-07-29 09:56 | disposition home or self-care (01) ==
LOC: HO.HNS 09:05
PROVIDERS: Referring Provider Physician Assistant; Visit Provider Physician Assistant
DX: M54.9 Dorsalgia, unspecified (principal)
CPT/HCPCS: 99204

== ENCOUNTER → 2024-07-29 09:05 | Outpatient (BNVA) | payer OTHER, SELFPAY | PROVIDERS: Referring Provider Physician Assistant; Visit Provider Physician Assistant | DX: M54.50 Low back pain, unspecified (principal); G89.29 Other chronic pain | CPT/HCPCS: 99202 ==

== ENCOUNTER 2024-08-04 12:00 | Outpatient (REF) | payer OTHER, SELFPAY ==
[2024-08-04 13:54] LABS: Appearance Urine Cloudy; Color Urine Yellow; Glucose Urine UA Negative (Negative); Leukocyte Esterase Urine Large (3+) (Negative); Nitrite Urine Negative (Negative); Specific Gravity - Urine 1.015 (1.005-1.025); UMIC TRIGGER UACC YES; Urine Blood Moderate (2+) (Negative); Urine Ketones Negative (Negative); Urine Protein 30 (1+) mg/dL (Neg-Trace)
[2024-08-04 14:09] LABS: Bacteria Urine 4+ (None Seen); Hyaline Casts Urine 0-2 /LPF (0-2); RBC Urine 0-2 /HPF (0-2); Squamous Epithelial Cell Urine 0-2 /HPF (0-2); UACC Culture Trigger YES; WBC Urine >50 /HPF (0-5)
[2024-08-04 14:51] LABS: Creatinine Urine 110.19 mg/dL; Microalbum/Creatinine Ratio Ur 203.2 ug/mg cr (<30)
== END 2024-08-04 12:01 | disposition home or self-care (01) ==
LOC: HO.LAB 12:00
PROVIDERS: PCP Physician Assistant
DX: I15.8 Other secondary hypertension (principal); E78.2 Mixed hyperlipidemia
CPT/HCPCS: 81001; 82043; 82570; 87086; 87088; 87186

== ENCOUNTER 2024-08-30 10:37 | Outpatient (AMB) | payer OTHER, SELFPAY ==
--- NOTE | 2024-08-30 11:20 | HO.NEPHOV ---
Vital Signs 08/30/24 11:23 Height 6 ft 2 in Weight 224 lb 4 oz BMI 28.8 BP 112/70 Blood Pressure Location Lt brachial Position Sitting Pulse 68 Pulse Source Pulse Oximeter Pulse Oximetry (%) 96 Oxygen Delivery Method Room Air Intake Visit Reasons: INP: Proteinuria Communications Director Required: Yes Communications Director Language: Distribution Center Assistant Services: Communications Director Present Communications Director Name: Cherry [id number] Information Interpreted: clinical only Accompanied by: Spouse Allergies Queen gill Allergy (Severe, Uncoded 07/29/24 09:36) Unresponsive HPI Comments Details: I had the pleasure of seeing Amos in consultation for proteinuria. He has longstanding hypertension and has been on multiple antihypertensive medications which apparently has been keeping his blood pressure at goal. He recently had a urinary tract infection which has been treated. In the last 2 urine studies he was found to have some protein. He does not have any coronary artery disease, congestive heart failure, CVA, peripheral arterial disease, carotid disease. He is not a diabetic. He has dyslipidemia and is on statins. He has history of arthritis and takes nonsteroidal anti-inflammatories as on a needed basis. His weight has been steady & stable. He denies any microscopic hematuria, recurrent sore throat, epistaxis, skin rash, photosensitivity, sensorineural deafness. His renal functions have been stable. Denies any nausea vomiting, diarrhea, chest pain, proximal nocturnal dyspnea, orthopnea pedal edema. He denies any froth or foam in the urine. He has no history of renal calculi. He had no specific systemic complaints at the time this office visit. [facility] Medical History Arthritis Hypertension Surgical History No pertinent past surgical history Family History Father No problems noted. Mother No problems noted. Brother No problems noted. Sister No problems noted. Social History Housing: House Alcohol intake: never Patient Tobacco Use Status: Never used Tobacco Tobacco use type: Cigarette e-Cigarette/Vaping Use: Never Used Second Hand Smoke Exposure: No service: No Current occupational status: unemployed Cognitive needs: No Hearing needs: No Vision needs: No Review of Systems Const All systems reviewed & are unremarkable except as noted in HPI and below Physical Exam Vital Signs: Last Vital Signs Pulse 68 08/30/24 11:23 BP 112/70 08/30/24 11:23 Pulse Ox 96 08/30/24 11:23 Oxygen Delivery Method Room Air 08/30/24 11:23 BMI result Body Mass Index 28.8 Const General: comfortable and no acute distress Orientation/consciousness: patient oriented x3 HEENT Head: Yes normocephalic Mouth: Normal oral and palatal mucosa present Eyes EOM: EOMs intact bilaterally Neck Neck: Yes supple Resp Auscultation: clear to auscultation bilaterally Cardio Jugular venous distension: no JVD Rate: regular rate GI Palpation (GI): Soft to palpation Auscultation: normal bowel sounds General: Yes no CVA tenderness Back/Spine/Pelvis Back: no CVA tenderness Skin General skin exam: no rashes or lesions noted Neuro General: patient oriented x3 and moves all extremities Extrem General: Yes no pedal edema Results Reviewed Nephrology Results: Hgb 16.6 g/dl (14.0-18.0) 05/03/24 WBC 10.6 X10*3/uL (4.8-10.8) 05/03/24 Plt Count 247 X10*3/uL (160-400) 05/03/24 Sodium 143 mmol/L (135-145) 05/03/24 Potassium 3.5 mmol/L (3.3-5.1) 05/03/24 Chloride 106 mmol/L (96-108) 05/03/24 Carbon Dioxide 30 mmol/L (22-29) H 05/03/24 BUN 20 mg/dL (9-16) H 05/03/24 Creatinine 0.95 mg/dL (0.5-1.4) 05/03/24 Calcium 9.0 mg/dL (8.4-10.2) 05/03/24 Urine Protein 30 (1+) mg/dL (Neg-Trace) H 08/04/24 Urine Creatinine 110.19 mg/dL 08/04/24 Assessment & Plan Assessment & Plan (1) Hypertension: Code(s): I10 - Essential (primary) hypertension Category: Medical Qualifiers: Hypertension type: other secondary hypertension Qualified Code(s): I15.8 - Other secondary hypertension (2) Proteinuria: Code(s): R80.9 - Proteinuria, unspecified Category: Medical Qualifiers: Proteinuria type: other Qualified Code(s): R80.8 - Other proteinuria Plan Amos has longstanding hypertension. He was found microscopic hematuria and proteinuria and was treated has a UTI. He has proteinuria detected even prior to the last episode. He is not on any KATE inhibitor or ARB. I have ordered workup including imaging studies. I plan to switching from calcium channel hesham to KATE-inhibitor or ARB based on data. If he has significant proteinuria and all the workup has been unyielding, he may need a renal biopsy. I did not make any medication changes today. He was encouraged not to take excessive nonsteroidal anti-inflammatories and maintain good hydration. Further management is pending evolving data. Answered all questions. Follow-up appointment given. Orders: Orders Calcium 3 Months I15.8 - Other secondary hypertension, R80.9 - Proteinuria, unspecified Protein Creatinine Ratio, Ur 3 Months I15.8 - Other secondary hypertension, R80.9 - Proteinuria, unspecified Anti DNA DS Antibody 3 Months I15.8 - Other secondary hypertension, R80.9 - Proteinuria, unspecified Myeloperoxidase Antibody 3 Months I15.8 - Other secondary hypertension, R80.9 - Proteinuria, unspecified Immunofixation Pnl, Serum 3 Months I15.8 - Other secondary hypertension, R80.9 - Proteinuria, unspecified Phospholipase A2 Receptor Pnl 3 Months I15.8 - Other secondary hypertension, R80.9 - Proteinuria, unspecified Hepatitis B Surface Antigen 3 Months I15.8 - Other secondary hypertension, R80.9 - Proteinuria, unspecified Prothrombin Time INR 3 Months I15.8 - Other secondary hypertension, R80.9 - Proteinuria, unspecified Creatinine 3 Months I15.8 - Other secondary hypertension, R80.9 - Proteinuria, unspecified Blood Urea Nitrogen 3 Months I15.8 - Other secondary hypertension, R80.9 - Proteinuria, unspecified Electrolytes 3 Months I15.8 - Other secondary hypertension, R80.9 - Proteinuria, unspecified Proteinase 3 PR3 Antibodies 3 Months I15.8 - Other secondary hypertension, R80.9 - Proteinuria, unspecified Anti Glomerular Basement Memb 3 Months I15.8 - Other secondary hypertension, R80.9 - Proteinuria, unspecified Complement C3 3 Months I15.8 - Other secondary hypertension, R80.9 - Proteinuria, unspecified Complement C4 3 Months I15.8 - Other secondary hypertension, R80.9 - Proteinuria, unspecified Hepatitis B Core Antibody 3 Months I15.8 - Other secondary hypertension, R80.9 - Proteinuria, unspecified Hepatitis C Antibody Reflex 3 Months I15.8 - Other secondary hypertension, R80.9 - Proteinuria, unspecified Immunofixation, Random Urine 3 Months I15.8 - Other secondary hypertension, R80.9 - Proteinuria, unspecified Complete Blood Count Auto Diff 3 Months I15.8 - Other secondary hypertension, R80.9 - Proteinuria, unspecified US renal BI 1 Month I15.8 - Other secondary hypertension, R80.9 - Proteinuria, unspecified US renal doppler 1 Month I15.8 - Other secondary hypertension, R80.9 - Proteinuria, unspecified Coding Level of Care Code New Pt Level 4 (45668) Diagnoses Other secondary hypertension I15.8 Hypertension type: other secondary hypertension Other proteinuria R80.8 Proteinuria type: other
[2024-08-30 11:23] VITALS: BP 112/70; PULSE 68; O2SAT 96; BMI 28.8
== END 2024-08-30 11:42 | disposition home or self-care (01) ==
LOC: HO.HKAS 10:37
PROVIDERS: PCP Physician Assistant; Referring Provider Physician Assistant; Visit Provider Internal Medicine Nephrology
DX: I15.8 Other secondary hypertension (principal); R80.8 Other proteinuria
CPT/HCPCS: 99204

== ENCOUNTER → 2024-08-30 10:37 | Outpatient (BNVA) | payer OTHER, SELFPAY | PROVIDERS: PCP Physician Assistant; Referring Provider Physician Assistant; Visit Provider Internal Medicine Nephrology | DX: I15.8 Other secondary hypertension (principal); R80.8 Other proteinuria | CPT/HCPCS: 99202 ==

== ENCOUNTER 2024-09-16 08:05 | Outpatient (REF) | payer OTHER, SELFPAY ==
--- NOTE | ~2024-09-16 | CT_ITS ---
CLINICAL HISTORY: M54.9 - Dorsalgia, unspecified CT lumbar spine without contrast Comparison: None Findings: Vertebral alignment is within normal limits. No acute fractures or dislocations. There is multiple level degenerative disc and facet change. There is bilateral L4-L5 foraminal stenosis. Normal visualized abdominal contents. IMPRESSION: No acute findings. This document has been electronically signed by: Bashir Escobedo MD on 09/17/2024 07:46:24
== END 2024-09-16 08:06 | disposition home or self-care (01) ==
LOC: HO.CT 08:05
PROVIDERS: PCP Physician Assistant; Visit Provider Physician Assistant
DX: M54.9 Dorsalgia, unspecified (principal)
CPT/HCPCS: 72131

== ENCOUNTER → 2024-09-16 08:07 | Outpatient (BNV) | payer OTHER, SELFPAY | PROVIDERS: PCP Physician Assistant; Visit Provider Specialist | DX: M54.9 Dorsalgia, unspecified (principal) | CPT/HCPCS: 72131 ==

== ENCOUNTER 2024-09-30 14:09 | Outpatient (AMB) | payer OTHER, SELFPAY ==
--- NOTE | 2024-09-30 15:02 | HO.SPINEOV ---
Intake Visit Reasons: Discuss CT and possible surgical discussion Intake Note: Mr. Sadi Lakhani is here today to Discuss results to his CT and Surgery. Instructor Physical Education Required: No Allergies Queen gill Allergy (Severe, Uncoded 07/29/24 09:36) Unresponsive Assessment & Plan Assessment & Plan (1) Lumbar disc disease with radiculopathy: Code(s): M51.16 - Intervertebral disc disorders with radiculopathy, lumbar region Category: Medical Plan Mr Sadi Lakhani came back into the office today review his CT scan. I used my medical laboratory technicians Tracy for interpreting. His CT does not show that he has already fused the L4-5 disc space, but it does show anterior osteophytes. I went back and reviewed his MRI as well done here at [place] and again I do not see any significant evidence that can absolutely point to saying that this is the source of his pain. I again explained to him that many of the findings that we see on his MRI can be seen in patients who are asymptomatic. Therefore undergoing lumbar fusion to fix these things can often yield less than optimal results, and there is risk we can give him a pain that he does not already have. What I am seeing right now in the imaging is not something typically Dr. Boswell would offer lumbar fusion because of these reasons. I would like to just check in with him again in 6 months. The patient is understanding and realizes that we are trying to do what is best for him, and would offer him surgery free felt strongly that it was going to make a significant impact but right now I am just not seeing a justification for lumbar fusion. He is not interested in injections, which is reasonable. He will continue with his medications and I will see him back in 6 months to re-evaluate. Total amount of time spent in this visit was 20 minutes in discussion of symptoms, lumbar MRI and CT imaging results and subsequent plan of care Killian Boswell MD,PhD [facility] Coding Level of Care Code Est Pt Level 3 (47211) Diagnoses Lumbar disc disease with radiculopathy M51.16
== END 2024-09-30 15:27 | disposition home or self-care (01) ==
LOC: HO.HNS 14:10
PROVIDERS: PCP Physician Assistant; Visit Provider Physician Assistant
DX: M51.16 Intervertebral disc disorders with radiculopathy, lumbar region (principal)
CPT/HCPCS: 99213

== ENCOUNTER → 2024-09-30 14:09 | Outpatient (BNVA) | payer OTHER, SELFPAY | PROVIDERS: PCP Physician Assistant; Visit Provider Physician Assistant | DX: M51.16 Intervertebral disc disorders with radiculopathy, lumbar region (principal) | CPT/HCPCS: 99212 ==

== ENCOUNTER 2025-01-04 09:49 | Outpatient (REF) | payer OTHER, SELFPAY ==
[2025-01-04 10:07] LABS: MANUAL DIFF FLAG NO
--- OUTSIDE RECORDS SUMMARY | 2025-01-04 10:40 | XMS_ITS ---
Author Name [facility] Organization Unknown Care Team Organization Name Specialty Phone Email Start Date End Da te [facility] 04/29/2023 024
[2025-01-04 10:44] LABS: Hematocrit 48.7 % (42.0-52.0); Hemoglobin 16.6 g/dl (14.0-18.0); Imm Gran Abs Auto 0.03 X10*3/uL (0.00-0.03); Imm Gran Pct Auto 0.3 % (0.0-0.4); Lymphocytes Absolute Auto 2.6 X10*3/uL (1.2-4.9); Mean Corpuscular HGB Conc 34.1 g/dl (31.0-36.0); Mean Corpuscular Hemoglobin 29.4 pg (27.0-33.0); Mean Corpuscular Volume 86.2 fL (80.0-98.0); NRBC Abs Auto 0.000 X10*3/uL (0.0-0.012); NRBC Pct Auto 0.0 /100WBC (0.0-0.2); Platelet Count 237 X10*3/uL (160-400); Red Blood Count 5.65 X10*6/uL (4.60-5.80); White Blood Count 9.1 X10*3/uL (4.8-10.8)
[2025-01-04 10:45] LABS: INTERNATIONAL NORM RATIO 1.1 (0.9-1.1); Prothrombin Time 12.4 SEC (10.9-12.4)
[2025-01-04 11:10] LABS: Alanine Aminotransferase 24 U/L (0-40); Albumin Level 4.8 g/dL (3.5-5.0); Alkaline Phosphatase 96 U/L (39-117); Anion Gap 14 (12-20); Aspartate Amino Transferase 27 U/L (5-37); Blood Urea Nitrogen 14 mg/dL (9-16); Calcium 8.8 mg/dL (8.4-10.2); Carbon Dioxide 28 mmol/L (22-29); Chloride 106 mmol/L (96-108); Cholesterol 215 mg/dL (<200); Estimated Glomerular Filt Rate > 60; HDL Cholesterol 35 mg/dL (>40); Potassium 3.7 mmol/L (3.3-5.1); Sodium 144 mmol/L (135-145); Total Protein 7.8 g/dL (6.5-8.0); Triglycerides 132 mg/dL (<150)
[2025-01-04 11:30] LABS: HBc Num1 0.07 S/CO (0.00-0.79); HBsAGNum1 0.34 S/CO (0.00-0.99); Hepatitis B Surface Antigen Negative (Negative); ~HepC Num1 0.08 S/CO (0.00-0.79); ~Hepatitis C Antibody Nonreactive (Nonreactive)
[2025-01-04 11:59] LABS: Protein/Creatinine Ratio, Ur 0.13 (<0.2); Total Protein Urine Random 15 mg/dL (<12)
[2025-01-05 14:33] LABS: Anti Glomerular Basement Memb <1.0 AI; Proteinase 3 PR3 Antibodies <1.0 AI
[2025-01-07 14:27] LABS: Phospholipase A2 IgG ELISA <4 RU/mL; Phospholipase A2 IgG IFA NEGATIVE (NEGATIVE)
== END 2025-01-04 09:50 | disposition home or self-care (01) ==
LOC: HO.LAB 09:49
PROVIDERS: Absent Provider Physician Assistant; PCP Physician Assistant; Visit Provider Internal Medicine Nephrology
DX: I15.8 Other secondary hypertension (principal); R80.9 Proteinuria, unspecified; E78.2 Mixed hyperlipidemia; Z01.84 Encounter for antibody response examination; Z11.59 Encounter for screening for other viral diseases
CPT/HCPCS: 80053; 80061; 82570; 82784; 83520; 84156; 85025; 85610; 86021; 86160; 86225; 86255; 86334; 86335; 86704; 86803; 87340

== ENCOUNTER 2025-01-10 09:30 | Outpatient (AMB) | payer OTHER, SELFPAY ==
--- NOTE | 2025-01-10 09:46 | HO.NEPHOV_ITS ---
Vital Signs 01/10/25 09:49 Height 6 ft 2 in Weight 221 lb 2 oz BMI 28.4 BP 120/80 Blood Pressure Location Lt brachial Position Sitting Pulse 72 Pulse Source Pulse Oximeter Pulse Oximetry (%) 97 Oxygen Delivery Method Room Air Intake Visit Reasons: Patient wanted Dec f/u w/labs-LVM Licensed Aircraft Maintenance Engineer Required: Yes Licensed Aircraft Maintenance Engineer Language: Backwinder Services: Licensed Aircraft Maintenance Engineer Present Licensed Aircraft Maintenance Engineer Name: Dm [id number] Information Interpreted: clinical only Accompanied by: Significant Other Allergies Queen gill Allergy (Severe, Uncoded 07/29/24 09:36) Unresponsive HPI Comments Details: Amos was seen in follow up of proteinuria. He has longstanding hypertension and has been on multiple antihypertensive medications which apparently has been keeping his blood pressure at goal. He recently had a urinary tract infection which has been treated. In the last 2 urine studies he was found to have some protein. He does not have any coronary artery disease, congestive heart failure, CVA, peripheral arterial disease, carotid disease. He is not a diabetic. He has dyslipidemia and is on statins. He has history of arthritis and takes nonsteroidal anti-inflammatories as on a needed basis. His weight has been steady & stable. He denies any microscopic hematuria, recurrent sore throat, epistaxis, skin rash, photosensitivity, sensorineural deafness. His renal functions have been stable. Denies any nausea vomiting, diarrhea, chest pain, proximal nocturnal dyspnea, orthopnea pedal edema. He denies any froth or foam in the urine. He has no history of renal calculi. [facility] Medical History Arthritis Hypertension Surgical History No pertinent past surgical history Family History Father No problems noted. Mother No problems noted. Brother No problems noted. Sister No problems noted. Social History Housing: House Alcohol intake: never Patient Tobacco Use Status: Never used Tobacco Tobacco use type: Cigarette e-Cigarette/Vaping Use: Never Used Second Hand Smoke Exposure: No service: No Current occupational status: unemployed Cognitive needs: No Hearing needs: No Vision needs: No Physical Exam Vital Signs: Last Vital Signs Pulse 72 01/10/25 09:49 BP 120/80 01/10/25 09:49 Pulse Ox 97 01/10/25 09:49 Oxygen Delivery Method Room Air 01/10/25 09:49 BMI result Body Mass Index 28.4 Const General: comfortable and no acute distress Orientation/consciousness: patient oriented x3 HEENT Head: Yes normocephalic Mouth: Normal oral and palatal mucosa present Eyes EOM: EOMs intact bilaterally Neck Neck: Yes supple Resp Auscultation: clear to auscultation bilaterally Cardio Jugular venous distension: no JVD Rate: regular rate GI Palpation (GI): Soft to palpation Auscultation: normal bowel sounds General: Yes no CVA tenderness Back/Spine/Pelvis Back: no CVA tenderness Skin General skin exam: no rashes or lesions noted Neuro General: patient oriented x3 and moves all extremities Extrem General: Yes no pedal edema Results Reviewed Nephrology Results: Hgb, (14.0-18.0) 16.6 g/dl 01/04/25 WBC, (4.8-10.8) 9.1 X10*3/uL 01/04/25 Plt Count, (160-400) 237 X10*3/uL 01/04/25 Sodium, (135-145) 144 mmol/L 01/04/25 Potassium, (3.3-5.1) 3.7 mmol/L 01/04/25 Chloride, (96-108) 106 mmol/L 01/04/25 Carbon Dioxide, (22-29) 28 mmol/L 01/04/25 BUN, (9-16) 14 mg/dL 01/04/25 Creatinine, (0.5-1.4) 1.10 mg/dL 01/04/25 Calcium, (8.4-10.2) 8.8 mg/dL 01/04/25 Urine Protein, (Neg-Trace) 30 (1+) mg/dL H 08/04/24 Urine Creatinine 117.37 mg/dL 01/04/25 Protein/Creatinin Ratio, (<0.2) 0.13 01/04/25 Assessment & Plan Assessment & Plan (1) Hypertension: Code(s): I10 - Essential (primary) hypertension Category: Medical Qualifiers: Hypertension type: other secondary hypertension Qualified Code(s): I15.8 - Other secondary hypertension (2) Proteinuria: Code(s): R80.9 - Proteinuria, unspecified Category: Medical Qualifiers: Proteinuria type: other Qualified Code(s): R80.8 - Other proteinuria Plan Amos has longstanding hypertension. He was found microscopic hematuria and proteinuria which has resolved. He is not on any KATE inhibitor or ARB. I plan to switching from calcium channel hesham to KATE-inhibitor or ARB based on data. He doesn not need a renal biopsy. I did not make any medication changes today. He was encouraged not to take excessive nonsteroidal anti-inflammatories and maintain good hydration. Further management is pending evolving data. Answered all questions. Follow-up appointment given. Orders: Orders Protein Creatinine Ratio, Ur 6 Months I15.8 - Other secondary hypertension, R80.8 - Other proteinuria Electrolytes 6 Months I15.8 - Other secondary hypertension, R80.8 - Other proteinuria Blood Urea Nitrogen 6 Months I15.8 - Other secondary hypertension, R80.8 - Other proteinuria UA and rflx microscopic 6 Months I15.8 - Other secondary hypertension, R80.8 - Other proteinuria Creatinine 6 Months I15.8 - Other secondary hypertension, R80.8 - Other proteinuria Coding Level of Care Code Est Pt Level 4 (43648) Diagnoses Other secondary hypertension I15.8 Hypertension type: other secondary hypertension Other proteinuria R80.8 Proteinuria type: other
[2025-01-10 09:49] VITALS: BP 120/80; PULSE 72; O2SAT 97; BMI 28.4
== END 2025-01-10 10:24 | disposition home or self-care (01) ==
LOC: HO.HKAS 09:30
PROVIDERS: PCP Physician Assistant; Visit Provider Internal Medicine Nephrology
DX: I15.8 Other secondary hypertension (principal); R80.8 Other proteinuria
CPT/HCPCS: 99214

== ENCOUNTER → 2025-01-10 09:30 | Outpatient (BNVA) | payer OTHER, SELFPAY | PROVIDERS: PCP Physician Assistant; Visit Provider Internal Medicine Nephrology | DX: I15.8 Other secondary hypertension (principal); R80.9 Proteinuria, unspecified; I10 Essential (primary) hypertension | CPT/HCPCS: 99212 ==

== ENCOUNTER 2025-01-20 12:43 | Outpatient (AMB) | payer OTHER, SELFPAY ==
--- NOTE | 2025-01-20 12:54 | MHC.PC.OV ---
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 Accompanied by: Self / Same As Patient Allergies Queen gill Allergy (Severe, Uncoded 01/20/25 13:52) Unresponsive Medication List - Last Reconciled 01/20/25 by Gisella Carrillo PA-C acetaminophen-codeine 300-30 mg 1 tab PO Q8H PRN 4 days amlodipine 10 mg PO DAILY 3 months baclofen 10 mg PO BEDTIME 90 days blood pressure test kit-large As directed carvedilol 25 mg PO BID 90 days hydroxyzine HCl 10 mg PO BEDTIME 90 days loratadine 10 mg PO DAILY PRN nortriptyline 75 mg PO DAILY 90 days simvastatin 20 mg PO DAILY 90 days Tobacco use date assessed: 07/12/24 Dental Screening Dental Screen Date: 01/20/25 Did you have a dental visit in the last 12 months?: No Did you have a dental problem in the last 6 months where you did not have access to dental care?: No Was dental information given to patient?: Patient has dentist HPI pe HPI Details 59 year old male with past medical history of hypertension, hyperlipidemia, insomnia, TAMELA, GERD last seen 06/2024 coming in for annual exam. In review of the notes, patient was seen by nephrology 12/2024 for proteinuria repeat blood work and given follow up. Seen by spine clinic 09/2024 continue with medications and follow up in 6 months. diplomatic interpreter [employer] [id number] was used for the duration of this visit. Presenting with chronic back pain and hypertension. The patient experiences significant limitations in mobility due to back pain. He has declined surgical options and has not received the anticipated pain medication. Hypertension managed with carvedilol and amlodipine, with diuretics discontinued by the kidney specialist. The patient reports stability on this regimen. PSA: 04/2024 ordered for updated colonoscopy: 01/2024 repeat in 3 years vaccines: Td UTD PFSH Medical History Arthritis Hypertension Surgical History No pertinent past surgical history Family History Father No problems noted. Mother No problems noted. Brother No problems noted. Sister No problems noted. Social History Housing: House Alcohol intake: never Patient Tobacco Use Status: Never used Tobacco Tobacco use type: Cigarette e-Cigarette/Vaping Use: Never Used Second Hand Smoke Exposure: No service: No Current occupational status: unemployed Cognitive needs: No Hearing needs: No Vision needs: No Questionnaire PHQ-9 Over the last 2 weeks, how often have you been bothered by any of the following problems? 1. Little interest or pleasure in doing things: several days 2. Feeling down, depressed, or hopeless: several days 3. Trouble falling or staying asleep, or sleeping too much: several days 4. Feeling tired or having little energy: several days 5. Poor appetite or overeating: several days 6. Feeling bad about yourself - or that you are a failure or have let yourself or your family down: several days 7. Trouble concentrating on things, such as reading the newspaper or watching television: several days 8. Moving or speaking so slowly that other people could have noticed. Or the opposite - being so fidgety or restless that you have been moving around a lot more than usual: not at all 9. Thoughts that you would be better off or of hurting yourself in some way: not at all Total score: 7 Depression Screening Interpretation: Positive Depression Screening Follow-up: Existing condition and In treatment Depression Screening Done: Yes 86755 - PHQ-9 Billing: Yes Source: Developed by Drs. Dejuan Ibarra, Ana Brar, Aurelio Rg and colleagues, with an educational pantera from [employer]. Thrive Questionnaire Date Thrive assessed: 07/12/24 I am a: Patient What is your living situation today?: I choose not to answer this question Within the past 12 months, did the food you bought not last and you didn't have the money to get more?: I choose not to answer this question Within the past 12 months, did you worry whether your food would run out before you got money to buy more?: I choose not to answer this question Do you have trouble paying for medicines?: No Do you have trouble getting transportation to medical appointments?: No Do you have trouble paying your heating and electricity bill?: I choose not to answer this question Do you have trouble taking care of your child, family member or friend?: I choose not to answer this question Do you have trouble with day-to-day activities such as bathing, preparing meals, shopping, managing finances, etc.?: No Are you currently unemployed and looking for a job?: Yes Are you interested in more education?: No Please select the resources that you would like help with: None Currently or been in a relationship where the following occur: No concerns reported THRIVE Score: 0 AUDIT C Alcohol Use Questionnaire (AUDIT-C) 1. How often do you have a drink containing alcohol?: Never Total Score: 0 TAMELA-7 AMB Questionnaire TAMELA-7 Date TAMELA - 7 assessed: 07/12/24 Feeling nervous, anxious, or on edge: 1 = Several days Not being able to stop or control worryin = Several days Worrying too much about different things: 0 = Not at all Trouble relaxin = Several days Being so restless that it is hard to sit still: 1 = Several days Becoming easily annoyed or irritable: 0 = Not at all Feeling afraid as if something awful might happen: 0 = Not at all Total TAMELA-7 score (0-4 normal; 5-9 mild; 10-14 moderate; 15-21 severe): 4 Source: Developed by Drs. Dejuan Ibarra, Ana Brar, Aurelio Rg and colleagues, with an educational pantera from [employer]. TAMELA-7 Assessment Billing TAMELA-7 Assessment Tool: TAMELA-7 Assessment 79910 Review of Systems Const Denies body aches, Denies fatigue, Denies fever(s), Denies frequent falls, Denies headache(s) and Denies weakness Eyes Reports no additional complaints and Denies change in vision ENT Denies dysphagia, Denies dizziness, Denies facial pain, Denies headache(s), Denies nasal congestion and Denies odynophagia Card Denies chest pain, Denies syncope, Denies irregular heart rhythm, Denies leg edema, Denies lightheadedness and Denies dyspnea Resp Denies dyspnea GI Denies abdominal pain, Denies constipation, Denies dysphagia, Denies dyspepsia, Denies diarrhea, Denies nausea, Denies odynophagia and Denies vomiting Denies dysuria, Denies urinary frequency, Denies urinary hesitancy and Denies urinary urgency Musc Reports as per HPI, Reports back pain and Denies myalgias Skin/Breast Reports system reviewed and no additional complaints, except as documented Neuro Denies dizziness, Denies syncope, Denies frequent falls, Denies headache(s) and Denies weakness Psych Reports no additional complaints Endo Denies fatigue Physical exam (Primary Care) Vital Signs: Last Vital Signs Pulse 73 01/20/25 12:55 BP 130/82 01/20/25 12:55 Pulse Ox 98 01/20/25 12:55 Oxygen Delivery Method Room Air 01/20/25 12:55 BMI result Body Mass Index 28.2 Tobacco/Smoking Status: Tobacco use Status Tobacco use date assessed 07/12/24 01/20/25 12:57 Patient Tobacco Use Status Never used Tobacco 01/20/25 12:57 Tobacco use type Cigarette 01/20/25 12:57 e-Cigarette/Vaping Use Never Used 01/20/25 12:57 PHQ-9: PHQ-9 Score PHQ-9: Total score 7 01/20/25 14:10 Depression Screening Interpretation: Positive Depression Screening Follow-up: Existing condition and In treatment Thrive Assessment: Date of Thrive Assessment Date Thrive assessed 07/12/24 01/20/25 12:57 Currently or been in a relationship where the following occur: No concerns reported Const General: cooperative, healthy appearing, comfortable and no acute distress Orientation/consciousness: patient oriented x3 HENMT Head: Yes normocephalic Ears: hearing grossly normal bilaterally, external ears normal, TM's normal bilaterally and EAC's normal General nose exam: Normal external nose present Face and sinus: Yes normal facial exam and Yes sinuses nontender Mouth: Normal oral and palatal mucosa present and tongue normal Throat: Yes posterior oropharynx normal Eyes General: appearance normal, both eyes and all related structures Conjunctivae: conjunctivae normal Pupils: Equal, round and reactive pupils present EOM: EOMs intact bilaterally and No Nystagmus present Neck Neck: Yes normal visual inspection, Yes full ROM and Yes no lymphadenopathy Chest Chest palpation & inspection: normal inspection of the chest Resp Effort & Inspection: normal respiratory effort Auscultation: clear to auscultation bilaterally, no crackles, no rales, no rhonchi, no wheezes and breath sounds present Cardio Rate: regular rate Rhythm: regular rhythm Peripheral pulses: radial pulses present and dorsalis pedis present GI Inspection: Yes normal to inspection and No Abdominal wall edema Palpation (GI): Soft to palpation, not firm and nontender Auscultation: normal bowel sounds Rectal Exam - Male: Yes deferred General: Yes no CVA tenderness Back/Spine/Pelvis Back: no CVA tenderness Skin General skin exam: no rashes or lesions noted Neuro Other: Intact strength, sensation, pulses in bilateral upper extremities. Negative Phalen and Tinel's test General: patient oriented x3 Cranial nerves: Yes Equal, round and reactive pupils present, Yes Midline tongue present, Yes Ability to bilaterally elevate shoulders present and No Nystagmus present Gait exam (Neuro): Normal gait present Extrem General: Yes normal to inspection, Yes full ROM, No no pedal edema and No edema Psych Speech and movement: Normal speech and movement present Affect: normal affect Insight: Good insight present (Psych) Judgement: Good judgement present (Psych) Coding Level of Care Code Est Pt Prev Care 40-64y(56153) Diagnoses Annual physical exam Z00.00 TAMELA (generalized anxiety disorder) F41.1 Other secondary hypertension I15.8 Hypertension type: other secondary hypertension Mixed hyperlipidemia E78.2 Hyperlipidemia type: mixed hyperlipidemia Gastroesophageal reflux disease without esophagitis K21.9 Esophagitis presence: without esophagitis Other proteinuria R80.8 Proteinuria type: other Insomnia, unspecified type G47.00 Insomnia type: unspecified Lumbar disc disease with radiculopathy M51.16 Numbness in both hands R20.0 Additional Codes TAMELA-7 Assessment Billing - TAMELA-7 Assessment Tool: TAMELA-7 Assessment 57555 ([id number]) PHQ-9 - 98748 - PHQ-9 Billing: Yes ([id number]) Assessment & Plan Assessment & Plan (1) Annual physical exam: Code(s): Z00.00 - Encounter for general adult medical examination without abnormal findings Category: Medical Plan: Patient is up-to-date on all recommended routine screenings and vaccinations for his age. Blood work is up-to-date and when is due was ordered today. Healthy diet and regular exercise is encouraged. (2) TAMELA (generalized anxiety disorder): Code(s): F41.1 - Generalized anxiety disorder Category: Medical Plan: Feels well managed at this time. (3) Hypertension: Code(s): I10 - Essential (primary) hypertension Category: Medical Qualifiers: Hypertension type: other secondary hypertension Qualified Code(s): I15.8 - Other secondary hypertension Plan: Continue on current blood pressure medication. Avoid salt intake and encourage healthy diet and regular exercise. (4) HLD (hyperlipidemia): Code(s): E78.5 - Hyperlipidemia, unspecified Category: Medical Qualifiers: Hyperlipidemia type: mixed hyperlipidemia Qualified Code(s): E78.2 - Mixed hyperlipidemia Plan: Avoid foods that are high in cholesterol such as red meat, fried foods, eggs and baked goods. Triglyceride goal of less than 150 and LDL goal of less than 130. Continue on Simvastatin (5) GERD (gastroesophageal reflux disease): Code(s): K21.9 - Gastro-esophageal reflux disease without esophagitis Category: Medical Qualifiers: Esophagitis presence: without esophagitis Qualified Code(s): K21.9 - Gastro-esophageal reflux disease without esophagitis Plan: Avoid trigger foods such as citrus, tomato products, soda, caffeine, spicy foods and other foods that may be irritating to your stomach. Avoid laying flat 3-4 hours after eating and elevate the head of the bed 30 degrees to prevent acid from moving into the esophagus. (6) Proteinuria: Code(s): R80.9 - Proteinuria, unspecified Category: Medical Qualifiers: Proteinuria type: other Qualified Code(s): R80.8 - Other proteinuria Plan: Continue to follow with nephrology at this time and will continue to monitor blood work and urine. (7) Insomnia: Code(s): G47.00 - Insomnia, unspecified Category: Medical Qualifiers: Insomnia type: unspecified Qualified Code(s): G47.00 - Insomnia, unspecified Plan: Continue on Nortriptyline and hydroxyzine at this time and feels sleep is well managed at this time. (8) Lumbar disc disease with radiculopathy: Code(s): M51.16 - Intervertebral disc disorders with radiculopathy, lumbar region Category: Medical Plan: The patient is experiencing chronic back pain that limits mobility. Surgical intervention was discussed but declined by the patient due to concerns about potential outcomes. Pain management with medication has not been initiated despite previous discussions. A strong pain medication was proposed but not provided. (9) Numbness in both hands: Code(s): R20.0 - Anesthesia of skin Category: Medical Plan: Negative phalen and Tinel test today. Discussed the use of night splints with the patient. Plan to obtain upper extremity EMG bilaterally for further evaluation. Intact strength, sensation, pulses in bilateral upper extremities Plan This note was constructed using voice recognition software. While every effort has been made to ensure accuracy and correspondence transcriber, still areas may have been included sometimes these areas may affect the content or meeting of the given symptoms. Total time spent caring for the patient today was 30 minutes. This includes time spent before the visit reviewing the chart, time spent during the visit, and time spent after the visit and documentation. Patient was informed and verbally consented to the use of an ambient scribe for clinic note documentation during this visit. Orders: Orders NE electromyogram (EMG) Today R20.0 - Anesthesia of skin NE nerve conduction velocity Today R20.0 - Anesthesia of skin Lipid Panel Today E78.00 - Pure hypercholesterolemia, unspecified Medications: Changed From loratadine 10 mg PO DAILY PRN To loratadine 10 mg PO DAILY 90 tabs 0RF Refilled amlodipine 10 mg PO DAILY 90 tabs 1RF 3 months I15.8 - Other secondary hypertension Discontinued acetaminophen-codeine 300-30 mg Discontinued Reason: Patient Refused 1 tab PO Q8H 4 days PRN 12 tabs 0RF pain M51.16 - Intervertebral disc disorders with radiculopathy, lumbar region
[2025-01-20 12:55] VITALS: BP 130/82; PULSE 73; O2SAT 98; BMI 28.2
== END 2025-01-20 14:35 | disposition home or self-care (01) ==
LOC: HO.HMCH 12:44
PROVIDERS: PCP Physician Assistant
DX: Z00.00 Encounter for general adult medical examination without abnormal findings (principal); F41.1 Generalized anxiety disorder; I15.8 Other secondary hypertension; E78.2 Mixed hyperlipidemia; K21.9 Gastro-esophageal reflux disease without esophagitis; R80.8 Other proteinuria; G47.00 Insomnia, unspecified; M51.16 Intervertebral disc disorders with radiculopathy, lumbar region; R20.0 Anesthesia of skin

== ENCOUNTER → 2025-01-20 12:43 | Outpatient (BNVA) | payer OTHER, SELFPAY | PROVIDERS: PCP Physician Assistant | DX: Z00.00 Encounter for general adult medical examination without abnormal findings (principal); I10 Essential (primary) hypertension; G47.00 Insomnia, unspecified; F41.1 Generalized anxiety disorder; K21.9 Gastro-esophageal reflux disease without esophagitis; M54.9 Dorsalgia, unspecified; G89.29 Other chronic pain; I15.8 Other secondary hypertension; E78.2 Mixed hyperlipidemia; R80.8 Other proteinuria; M51.16 Intervertebral disc disorders with radiculopathy, lumbar region; R20.0 Anesthesia of skin; E78.00 Pure hypercholesterolemia, unspecified | CPT/HCPCS: 96127; 99396 ==

== ENCOUNTER 2025-01-27 08:24 | Outpatient (REF) | payer OTHER, SELFPAY ==
--- NOTE | ~2025-01-27 | US_ITS ---
EXAMINATION: US RETROPERITONEAL LIMITED (RENAL ONLY) ULTRASOUND RENAL DOPPLER CLINICAL INFORMATION: Proteinuria. Hypertension.. COMPARISON: None available. TECHNIQUE: Ultrasound arterial renal Doppler ultrasound with spectral analysis of the main renal arteries. Arterial Doppler ultrasound and an spectral analysis of the abdominal aorta at the origin of the main renal arteries. Segmental resistive indicis in the upper, mid and lower poles. FINDINGS: RIGHT KIDNEY: 12 x 6 x 5 cm (SAG x AP x TRV). Normal echotexture. Normal renal cortical thickness. No hydronephrosis. No gross solid or cystic lesion. LEFT KIDNEY: 12 x 6 x 5 cm (SAG x AP x TRV). Normal echotexture. Normal renal cortical thickness. No hydronephrosis. There is a 0.8 cm anechoic lesion without nodular components were flow on color Doppler interrogation at the corticomedullary junction, midportion. Spectral Doppler analysis: Right Kidney: -Peak systolic velocity in the proximal right renal artery = 75 cm/s. Normal waveforms. -Peak systolic velocity in the mid right renal artery = 97 cm/s. Normal waveforms. -Peak systolic velocity in the distal right renal artery = 81 cm/s. Normal waveforms. -Patent right renal vein. -Upper pole interlobar artery resistive index of 0.74. -Midpole interlobar artery resistive index of 0.81. -Lower pole interlobar artery resistive index of 0.69. RAR right = 1.5 Left Kidney: -Peak systolic velocity in the proximal left renal artery = 64 cm/s. Normal waveforms. -Peak systolic velocity in the mid left renal artery = 76 cm/s. Normal waveforms. -Peak systolic velocity in the distal left renal artery = 83 cm/s. Normal waveforms. -Patent left renal vein. -Upper pole interlobar artery resistive index of 0.72. -Mid pole interlobar artery resistive index of 0.71. -lower pole interlobar artery resistive index of 0.70. RAR left = 1.29 Aorta: -Peak systolic velocity = 64 cm/s. US/US renal doppler IMPRESSION: No hemodynamically significant stenosis in either main renal artery. Borderline slight elevated resistive index, mid segment of the right kidney. No hydronephrosis. 0.2 cm simple cyst, left kidney. Right kidney is normal.. Electronically signed by: Anand Marroquin MD 01/27/2025 09:18 AM EDT RP
== END 2025-01-27 08:25 | disposition home or self-care (01) ==
LOC: HO.US 08:24
PROVIDERS: PCP Physician Assistant; Visit Provider Internal Medicine Nephrology
DX: I15.8 Other secondary hypertension (principal); R80.9 Proteinuria, unspecified
CPT/HCPCS: 93975

== ENCOUNTER → 2025-01-27 08:28 | Outpatient (BNV) | payer OTHER, SELFPAY | PROVIDERS: PCP Physician Assistant; Visit Provider Radiology Diagnostic Radiology | DX: I10 Essential (primary) hypertension (principal) | CPT/HCPCS: 93975 ==

== ENCOUNTER 2025-03-07 09:26 | Outpatient (REF) | payer OTHER, SELFPAY ==
--- NOTE | 2025-03-07 09:29 | EMG_ITS ---
Chief complaint: Numbness of both hands Reason for referral:\r20.0 Anesthesia of skin, numbness in both hands Referred by: HUANG Ramirez Procedure done: Nerve conduction study of bilateral upper extremities with EMG paraspinals performed Bilateral median and ulnar motor studies were performed. Bilateral radial sensory studies were performed and bilateral median and ulnar mixed sensory studies were performed. EMG needle examination was performed. Bilateral ulnar motor studies revealed mild slowing across elbow. Otherwise no significant abnormality was noted. Impression: Mild bilateral ulnar neuropathy across cubital tunnel. Otherwise no significant abnormality noted. MTDD
== END 2025-03-07 09:27 | disposition home or self-care (01) ==
LOC: HO.NEURO 09:26
PROVIDERS: PCP Physician Assistant
DX: R20.0 Anesthesia of skin (principal)
CPT/HCPCS: 95886; 95911

== ENCOUNTER → 2025-03-07 09:29 | Outpatient (BNV) | payer OTHER, SELFPAY | PROVIDERS: PCP Physician Assistant; Visit Provider Psychiatry & Neurology Neurology | DX: G56.03 Carpal tunnel syndrome, bilateral upper limbs (principal) | CPT/HCPCS: 95886; 95911 ==

== ENCOUNTER 2025-03-24 11:00 | Outpatient (AMB) | payer OTHER, SELFPAY ==
--- NOTE | 2025-03-24 11:49 | A.SPINEOV_ITS ---
Intake Visit Reasons: 6 month f/u Intake Note: Mr. Sadi Lakhani is here today for his 6 month F/u. Continuous Improvement Director Required: Yes Continuous Improvement Director Language: Chrome Tanner Services: Continuous Improvement Director Present Continuous Improvement Director Name: Tracy Brady LM Allergies Queen gill Allergy (Severe, Uncoded 01/20/25 13:52) Unresponsive Assessment & Plan Assessment & Plan (1) Back pain: Code(s): M54.9 - Dorsalgia, unspecified Category: Medical Plan Mr Sadi Lakhani came back in the office today for follow-up. He is still continues to have lower lumbar pain. I reviewed his imaging done at [facility] again with Dr. Boswell and the disc degeneration at L4-5 is just not bad enough to justify fusion surgery. Unfortunately I do not have anything to offer him. We discussed nonoperative things like injections and pain medications etc.. He is not really interested in injections, but would be willing to consider going up on some pain medications. I urged him to speak to his PCP if he wants to consider something stronger, but obviously narcotics would be out of the question. I can see him back on an as-needed basis. Total amount of time spent in this visit was 20 minutes in discussion of symptoms, lumbar MRI imaging results and subsequent plan of care Killian Boswell MD,PhD [facility] Coding Level of Care Code Est Pt Level 3 (07265) Diagnoses Back pain M54.9
== END 2025-03-24 12:16 | disposition home or self-care (01) ==
LOC: HO.HNS 11:01
PROVIDERS: PCP Physician Assistant; Visit Provider Physician Assistant
DX: M54.9 Dorsalgia, unspecified (principal)
CPT/HCPCS: 99213

== ENCOUNTER → 2025-03-24 11:00 | Outpatient (BNVA) | payer OTHER, SELFPAY | PROVIDERS: PCP Physician Assistant; Visit Provider Physician Assistant | DX: M54.9 Dorsalgia, unspecified (principal) | CPT/HCPCS: 99212 ==

== ENCOUNTER 2025-04-25 09:19 | Outpatient (AMB) | payer OTHER, SELFPAY ==
[2025-04-25 09:51] VITALS: BMI 28.1
--- NOTE | 2025-04-25 09:51 | A.OFFVIS_ITS ---
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 Patient was referred by [facility] 03/07/25, patient had a EMG/Nerve conduction study done. At today's visit he states he is having numbness in his entire hand, both hands. States his symptoms increase at night time and in the mornings and with heavy lifting. Denies using braces or injections. Impression: Mild bilateral ulnar neuropathy across cubital tunnel. 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 He complains of numbness in all his fingers bilaterally. Symptoms intermittent, but daily, worse at night or with heavy lifting. He denies any prior treatment options. He says he is not interested in surgery at this time, and would prefer to wait until summertime. He also reports having issues with his neck. He is currently unemployed. [facility] Medical History Arthritis Hypertension Surgical History No pertinent past surgical history Family History Father No problems noted. Mother No problems noted. Brother No problems noted. Sister No problems noted. Social History (Updated 04/25/25 @ 10:02 by ALAN Sepulveda) Housing: House Alcohol intake: never Patient Tobacco Use Status: Never used Tobacco Tobacco use type: Cigarette e-Cigarette/Vaping Use: Never Used Second Hand Smoke Exposure: No service: No Current occupational status: unemployed Current occupation: rt hand Cognitive needs: No Hearing needs: No Vision needs: No Review of Systems Const All systems reviewed & are unremarkable except as noted in HPI and below Physical Exam Vital Signs: BMI result Body Mass Index 28.1 Const General: cooperative, healthy appearing and no acute distress Orientation/consciousness: patient oriented x3 HEENT Head: Yes normocephalic and Yes atraumatic Eyes EOM: EOMs intact bilaterally Resp Effort & Inspection: normal respiratory effort and able to speak in complete sentences Cardio Jugular venous distension: no JVD Skin General skin exam: turgor normal Rashes: no rashes Neuro General: patient oriented x3 Extrem Other: Evaluation of Bilateral Upper Extremity: The patient is alert, oriented, and in no acute distress Neuro: Median, Ulnar, Radial nerves motor and sensory intact and sensation is normal to the tips of all digits No thenar or intrinsic wasting Good APB muscle belly firing and good finger cross Good ABduction & ADduction Vascular: Cap refill brisk ROM: He can make a fist and extend all his digits Skin: No lacerations or abrasions. General: No Ecchymosis. No Erythema or evidence of infection. Nerve Conduction Study: Impression: Mild bilateral ulnar neuropathy across cubital tunnel. Otherwise no significant abnormality noted. Dictated By: Derek Jacobson MD 03/07/25 Psych Appearance: grossly normal Affect: normal affect Attitude: cooperative Assessment & Plan Assessment & Plan (1) Cubital tunnel syndrome on right: Code(s): G56.21 - Lesion of ulnar nerve, right upper limb Category: Medical (2) Cubital tunnel syndrome on left: Code(s): G56.22 - Lesion of ulnar nerve, left upper limb Category: Medical (3) Numbness and tingling in both hands: Code(s): R20.0 - Anesthesia of skin; R20.2 - Paresthesia of skin Category: Medical Plan Assessment & Plan: 1. Right cubital tunnel syndrome, mild Symptoms intermittent, but daily, worse at night 2. Left cubital tunnel syndrome, mild Symptoms intermittent, but daily, worse at night 3. Bilateral hand numbness In the median nerve distribution Symptoms intermittent, but daily NCS negative for carpal tunnel syndrome I educated him about this condition I discussed operative and non-operative treatment options The patient is interested in surgery, but not until the summertime I recommend bracing & sleeping modifications at this time He will follow up in 3-4 months to discuss his symptoms. He will be mindful which fingers or parts of his hand are numb most frequently. If he continues to have median nerve numbness I may order a repeat NCS with Dr. Godwin Please note that greater than 30 minutes was spent with this patient going over the history, evaluating the patient and radiographs, formulating possible treatment options, discussing them with the patient, and documenting the visit. Scribed for Camilla Tracy MD by Higinio Sorto, medical device sales consultant, on 04/25/25 at 10:15 AM, EST. Coding Level of Care Code New Pt Level 4 (46501) Diagnoses Cubital tunnel syndrome on right G56.21 Cubital tunnel syndrome on left G56.22 Numbness and tingling in both hands R20.0; R20.2
== END 2025-04-25 10:46 | disposition home or self-care (01) ==
LOC: HO.HOS 09:19
PROVIDERS: PCP Physician Assistant; Visit Provider Orthopaedic Surgery
DX: G56.21 Lesion of ulnar nerve, right upper limb (principal); G56.22 Lesion of ulnar nerve, left upper limb; R20.0 Anesthesia of skin; R20.2 Paresthesia of skin
CPT/HCPCS: 99203

== ENCOUNTER → 2025-04-25 09:19 | Outpatient (BNVA) | payer OTHER, SELFPAY | PROVIDERS: PCP Physician Assistant; Visit Provider Orthopaedic Surgery | DX: G56.21 Lesion of ulnar nerve, right upper limb (principal); G56.22 Lesion of ulnar nerve, left upper limb; R20.0 Anesthesia of skin; R20.2 Paresthesia of skin | CPT/HCPCS: 99202 ==